=== PATIENT | male | born 2000 | race Caucasian/White ===

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

== ENCOUNTER 2019-01-19 07:27 | Emergency (ER) | payer MEDICAID ==
[~2019-01-19] VITALS: Ht 175.3 cm; Wt 55.0 kg
[~2019-01-19 07:27] MED LIST changes: +ALBUTEROL SUL0.083 % IN
[2019-01-19] MEDS ORDERED: VENTOLIN H108 MCG/AC PO ×2 (07:38→07:45)
[2019-01-19] MEDS ORDERED: ALBUTEROL SUL0.083 % IN (07:41)
[2019-01-19] MEDS ORDERED: IPRATROPIUM BR0.02 % PO (07:41)
[2019-01-19 08:34] LABS: HEMATOCRIT 36.3 % (39.0-50.0); HEMOGLOBIN 11.2 g/dl (14.0-18.0); IMMATURE GRANULOCYTES 0.6 % (0.0-5.0); MEAN CORPUSCULAR HGB 24.7 pG CALC (26.0-32.0); MEAN CORPUSCULAR HGB CONC 30.9 g/L CALC (32.0-36.0); NEUT# 4.15 thou/uL (1.82-7.42); RED BLOOD COUNT 4.54 mill/uL (4.70-6.10); RED CELL DISTRI WIDTH 15.1 % (11.5-15.5)
[2019-01-19 08:37] LABS: ANION GAP 16 (6-22 (CALC)); BUN 13 mg/dL (8-21); BUN/CREATININE RATIO 20 (12-20 (CALC)); CARBON DIOXIDE 25 mmol/l (22-30); CHLORIDE 101 mmol/l (95-108); CREATININE 0.7 mg/dL (0.7-1.3); GFR > 60 ML/MIN (>=60 (CALC)); GFR FOR AFR.AMER. > 60 ML/MIN (>=60 (CALC)); POTASSIUM 4.1 mmol/l (3.5-5.1); SODIUM 138 mmol/l (137-146)
[2019-01-19 09:24] VITALS: BP 101/49
== END 2019-01-19 09:24 | disposition home or self-care (01) ==
LOC: ED 07:27
PROVIDERS: Family Medicine
DX: J45.909 Unspecified asthma, uncomplicated (principal); R06.02 Shortness of breath

== ENCOUNTER 2019-02-24 13:17 | Emergency (ER) | payer MEDICAID ==
[~2019-02-24] VITALS: Ht 175.3 cm; Wt 63.6 kg
[~2019-02-24 13:17] MED LIST changes: +IPRATROPIUM BR0.02 % PO; +LEVOFLOXACIN750 MG PO; +MEDDOSEPAK PO; +VENTOLIN H108 MCG/AC PO
[2019-02-24 13:56] LABS: URINE BILIRUBIN - DIPSTICK NEGATIVE (NEGATIVE); URINE BLOOD DIPSTICK NEGATIVE (NEGATIVE); URINE COLOR YELLOW; URINE GLUCOSE - DIPSTICK NEGATIVE (NEGATIVE); URINE KETONE NEGATIVE (NEGATIVE); URINE LEUK ESTERASE NEGATIVE (NEGATIVE); URINE NITRITE - DIPSTICK NEGATIVE (Negative); URINE PH 6.5 (4.5-8.0); URINE PROTEIN - DIPSTICK NEGATIVE (NEG-TRACE)
[2019-02-24 13:58] LABS: URINE AMORPH SEDIMENT MANY hpf (NONE-FER)
[2019-02-24] MEDS ORDERED: TORADOL PO (14:03)
[2019-02-24] MEDS ORDERED: KEFLEX500 M1 PO (14:03)
[2019-02-24] MEDS ORDERED: PYRIDIUM200 MG PO (14:03)
[2019-02-24 14:10] VITALS: BP 112/57
== END 2019-02-24 14:10 | disposition home or self-care (01) ==
LOC: ED 13:17
PROVIDERS: Emergency Medicine
DX: N34.2 Other urethritis (principal); N45.2 Orchitis

== ENCOUNTER 2019-03-11 00:36 | Emergency (ER) | payer MEDICAID ==
[~2019-03-11] VITALS: Ht 175.3 cm; Wt 54.0 kg
[~2019-03-11 00:36] MED LIST changes: +KEFLEX500 M1 PO; +PYRIDIUM200 MG PO; +TORADOL PO
[2019-03-11] MEDS ORDERED: PROVENTIL0.083 % IN (00:55)
[2019-03-11] MEDS ORDERED: ALBUTEROL108 MCG/AC (00:56)
[2019-03-11 01:55] LABS: HEMATOCRIT 34.7 % (39.0-50.0); IMMATURE GRANULOCYTES 0.4 % (0.0-5.0); MEAN CELL VOLUME 80.1 fL CALC (80.0-100.0); MEAN CORPUSCULAR HGB 25.4 pG CALC (26.0-32.0); MEAN CORPUSCULAR HGB CONC 31.7 g/L CALC (32.0-36.0); NEUT# 6.2 thou/uL (1.82-7.42); RED BLOOD COUNT 4.33 mill/uL (4.70-6.10)
[2019-03-11] MEDS ORDERED: PREDNISONE50 MG PO (03:18)
[2019-03-11] MEDS ORDERED: TESSALON PERLE100 MG PO (03:18)
[2019-03-11 03:25] VITALS: BP 100/48
== END 2019-03-11 03:25 | disposition home or self-care (01) ==
LOC: ED 00:36
PROVIDERS: Family Medicine
DX: J20.8 Acute bronchitis due to other specified organisms (principal); R51 Headache; R05 Cough; R06.02 Shortness of breath; F17.200 Nicotine dependence, unspecified, uncomplicated

== ENCOUNTER 2019-03-18 22:50 | Observation (INO) | payer MEDICAID ==
[~2019-03-18] VITALS: Ht 172.7 cm; Wt 52.0 kg
[~2019-03-18 22:50] MED LIST changes: +ALBUTEROL108 MCG/AC; +PREDNISONE50 MG PO; +PROVENTIL0.083 % IN; +TESSALON PERLE100 MG PO
[2019-03-19 00:11] LABS: HEMATOCRIT 36.4 % (39.0-50.0); HEMOGLOBIN 11.8 g/dl (14.0-18.0); IMMATURE GRANULOCYTES 0.7 % (0.0-5.0); MEAN CELL VOLUME 77.4 fL CALC (80.0-100.0); MEAN CORPUSCULAR HGB 25.1 pG CALC (26.0-32.0); MEAN CORPUSCULAR HGB CONC 32.4 g/L CALC (32.0-36.0); NEUT# 9.68 thou/uL (1.82-7.42); RED BLOOD COUNT 4.7 mill/uL (4.70-6.10); RED CELL DISTRI WIDTH 15.3 % (11.5-15.5)
[2019-03-19 00:33] LABS: ALBUMIN 4.3 g/dL (3.2-5.0); ALKALINE PHOSPHATASE 82 u/l (38-126); ANION GAP 14 (6-22 (CALC)); BILIRUBIN, TOTAL 1.1 mg/dL (0.0-1.4); BUN 9 mg/dL (9-20); BUN/CREATININE RATIO 17 (12-20 (CALC)); CARBON DIOXIDE 29 mmol/l (22-30); CHLORIDE 97 mmol/l (95-108); CREATININE 0.6 mg/dL (0.7-1.3); GFR > 60 ML/MIN (>=60 (CALC)); GFR FOR AFR.AMER. > 60 ML/MIN (>=60 (CALC)); POTASSIUM 3.6 mmol/l (3.5-5.1); SGOT/AST 18 u/l (17-59); SODIUM 137 mmol/l (137-146); TOTAL PROTEIN 7.8 g/dL (6.3-8.2)
[2019-03-19 02:10] VITALS: BP 93/44
[2019-03-19 03:48] VITALS: BP 94/47
[2019-03-19 05:00] LABS: HEMATOCRIT 33.4 % (39.0-50.0); HEMOGLOBIN 10.6 g/dl (14.0-18.0); IMMATURE GRANULOCYTES 0.6 % (0.0-5.0); MEAN CELL VOLUME 78.8 fL CALC (80.0-100.0); MEAN CORPUSCULAR HGB CONC 31.7 g/L CALC (32.0-36.0); NEUT# 6.43 thou/uL (1.82-7.42); RED BLOOD COUNT 4.24 mill/uL (4.70-6.10); RED CELL DISTRI WIDTH 15.5 % (11.5-15.5)
[2019-03-19 05:35] LABS: ANION GAP 13 (6-22 (CALC)); BUN 8 mg/dL (9-20); BUN/CREATININE RATIO 17 (12-20 (CALC)); CARBON DIOXIDE 28 mmol/l (22-30); CHLORIDE 102 mmol/l (95-108); CREATININE 0.5 mg/dL (0.7-1.3); GFR > 60 ML/MIN (>=60 (CALC)); GFR FOR AFR.AMER. > 60 ML/MIN (>=60 (CALC)); POTASSIUM 3.7 mmol/l (3.5-5.1); SODIUM 139 mmol/l (137-146)
[2019-03-19 07:32] VITALS: BP 86/44
[2019-03-19 07:46] VITALS: BP 98/44
[2019-03-19 11:11] VITALS: BP 90/52
[2019-03-19] MEDS ORDERED: LEVAQUIN750 MG PO (14:23)
== END 2019-03-19 15:00 | disposition home or self-care (01) ==
LOC: ED 22:50 → ED-I 03-19 01:10 → ED 03-19 01:33 → MS2 03-19 01:34
PROVIDERS: Emergency Medicine; ADMIT Internal Medicine; ATTEND Internal Medicine
DX: J18.9 Pneumonia, unspecified organism (principal); E84.0 Cystic fibrosis with pulmonary manifestations; Z87.01 Personal history of pneumonia (recurrent); Z86.14 Personal history of Methicillin resistant Staphylococcus aureus infection; Z88.0 Allergy status to penicillin
CPT/HCPCS: G0378

== ENCOUNTER 2019-03-19 21:52 | Emergency (ER) | payer MEDICAID ==
[~2019-03-19] VITALS: Ht 172.7 cm; Wt 54.5 kg
[~2019-03-19 21:52] MED LIST changes: +LEVAQUIN750 MG PO
[2019-03-19 22:49] VITALS: BP 99/54
== END 2019-03-19 22:48 | disposition home or self-care (01) ==
LOC: ED 21:52
DX: J18.9 Pneumonia, unspecified organism (principal); E84.9 Cystic fibrosis, unspecified

== ENCOUNTER 2019-04-15 14:14 | Inpatient (IN) | payer MEDICAID ==
[~2019-04-15] VITALS: Ht 172.7 cm; Wt 54.4 kg
[2019-04-15 14:56] LABS: HEMATOCRIT 39.2 % (39.0-50.0); IMMATURE GRANULOCYTES 0.6 % (0.0-5.0); MEAN CELL VOLUME 78.2 fL CALC (80.0-100.0); MEAN CORPUSCULAR HGB 25.3 pG CALC (26.0-32.0); MEAN CORPUSCULAR HGB CONC 32.4 g/L CALC (32.0-36.0); NEUT# 13.7 thou/uL (1.82-7.42); RED BLOOD COUNT 5.01 mill/uL (4.70-6.10); RED CELL DISTRI WIDTH 15.3 % (11.5-15.5)
[2019-04-15 15:04] LABS: HEMOGLOBIN 12.7 g/dl (14.0-18.0)
[2019-04-15 15:13] LABS: ANION GAP 14 (6-22 (CALC)); BUN 7 mg/dL (9-20); BUN/CREATININE RATIO 15 (12-20 (CALC)); CARBON DIOXIDE 24 mmol/l (22-30); CHLORIDE 103 mmol/l (95-108); CREATININE 0.4 mg/dL (0.7-1.3); GFR > 60 ML/MIN (>=60 (CALC)); GFR FOR AFR.AMER. > 60 ML/MIN (>=60 (CALC)); SODIUM 137 mmol/l (137-146)
[2019-04-15 18:39] LABS: URINE BILIRUBIN - DIPSTICK NEGATIVE (NEGATIVE); URINE BLOOD DIPSTICK NEGATIVE (NEGATIVE); URINE COLOR YELLOW; URINE GLUCOSE - DIPSTICK NEGATIVE (NEGATIVE); URINE KETONE NEGATIVE (NEGATIVE); URINE LEUK ESTERASE NEGATIVE (NEGATIVE); URINE NITRITE - DIPSTICK NEGATIVE (Negative); URINE PROTEIN - DIPSTICK NEGATIVE (NEG-TRACE); URINE SPECIFIC GRAVITY <=1.005; URINE UROBILINOGEN - DIPSTICK 0.2 E.U./dL (0.2)
[2019-04-15 19:36] VITALS: BP 89/40
[2019-04-16 03:17] VITALS: BP 82/36
[2019-04-16 04:28] VITALS: BP 94/51
[2019-04-16 05:11] LABS: HEMATOCRIT 35.7 % (39.0-50.0); HEMOGLOBIN 11.2 g/dl (14.0-18.0); IMMATURE GRANULOCYTES 0.5 % (0.0-5.0); MEAN CELL VOLUME 79.9 fL CALC (80.0-100.0); MEAN CORPUSCULAR HGB 25.1 pG CALC (26.0-32.0); MEAN CORPUSCULAR HGB CONC 31.4 g/L CALC (32.0-36.0); NEUT# 2.86 thou/uL (1.82-7.42); RED BLOOD COUNT 4.47 mill/uL (4.70-6.10); RED CELL DISTRI WIDTH 15.6 % (11.5-15.5)
[2019-04-16 05:36] LABS: ALKALINE PHOSPHATASE 70 u/l (38-126); ANION GAP 10 (6-22 (CALC)); BUN 9 mg/dL (9-20); BUN/CREATININE RATIO 18 (12-20 (CALC)); CARBON DIOXIDE 27 mmol/l (22-30); CHLORIDE 105 mmol/l (95-108); CREATININE 0.5 mg/dL (0.7-1.3); GFR > 60 ML/MIN (>=60 (CALC)); GFR FOR AFR.AMER. > 60 ML/MIN (>=60 (CALC)); POTASSIUM 3.9 mmol/l (3.5-5.1); SGOT/AST 12 u/l (17-59); SODIUM 139 mmol/l (137-146)
[2019-04-16 05:51] LABS: BILIRUBIN, TOTAL 0.4 mg/dL (0.0-1.4); TOTAL PROTEIN 5.7 g/dL (6.3-8.2)
[2019-04-16 09:00] VITALS: BP 91/46
[2019-04-16] MEDS ORDERED: TYLENOL500 MG PO (14:23)
[2019-04-16 15:55] VITALS: BP 103/58
[2019-04-16 18:49] VITALS: BP 90/56
[2019-04-17 00:10] VITALS: BP 91/42
[2019-04-17 04:27] VITALS: BP 97/46
[2019-04-17 05:43] LABS: HEMATOCRIT 37.7 % (39.0-50.0); HEMOGLOBIN 11.9 g/dl (14.0-18.0); MEAN CELL VOLUME 79.7 fL CALC (80.0-100.0); MEAN CORPUSCULAR HGB 25.2 pG CALC (26.0-32.0); MEAN CORPUSCULAR HGB CONC 31.6 g/L CALC (32.0-36.0); RED BLOOD COUNT 4.73 mill/uL (4.70-6.10); RED CELL DISTRI WIDTH 15.5 % (11.5-15.5)
[2019-04-17 06:09] LABS: ANION GAP 14 (6-22 (CALC)); BUN 6 mg/dL (9-20); BUN/CREATININE RATIO 12 (12-20 (CALC)); CARBON DIOXIDE 25 mmol/l (22-30); CHLORIDE 104 mmol/l (95-108); CREATININE 0.5 mg/dL (0.7-1.3); GFR > 60 ML/MIN (>=60 (CALC)); GFR FOR AFR.AMER. > 60 ML/MIN (>=60 (CALC)); POTASSIUM 4.2 mmol/l (3.5-5.1); SODIUM 139 mmol/l (137-146)
[2019-04-17 07:53] VITALS: BP 95/44
[2019-04-17 11:13] VITALS: BP 99/42
[2019-04-17 16:35] VITALS: BP 94/47
[2019-04-17 19:45] VITALS: BP 113/59
[2019-04-18] VITALS (7 sets, daily range): BP systolic 90–119; BP diastolic 40–53
[2019-04-18 05:11] LABS: HEMATOCRIT 35.1 % (39.0-50.0); HEMOGLOBIN 11.3 g/dl (14.0-18.0); IMMATURE GRANULOCYTES 0.5 % (0.0-5.0); MEAN CELL VOLUME 78.9 fL CALC (80.0-100.0); MEAN CORPUSCULAR HGB 25.4 pG CALC (26.0-32.0); MEAN CORPUSCULAR HGB CONC 32.2 g/L CALC (32.0-36.0); NEUT# 2.77 thou/uL (1.82-7.42); RED BLOOD COUNT 4.45 mill/uL (4.70-6.10); RED CELL DISTRI WIDTH 15.4 % (11.5-15.5)
[2019-04-18 05:35] LABS: ALBUMIN 3.5 g/dL (3.2-5.0); ALKALINE PHOSPHATASE 88 u/l (38-126); ANION GAP 16 (6-22 (CALC)); BILIRUBIN, TOTAL 0.3 mg/dL (0.0-1.4); BUN 6 mg/dL (9-20); BUN/CREATININE RATIO 13 (12-20 (CALC)); CARBON DIOXIDE 25 mmol/l (22-30); CHLORIDE 103 mmol/l (95-108); CREATININE 0.5 mg/dL (0.7-1.3); GFR > 60 ML/MIN (>=60 (CALC)); GFR FOR AFR.AMER. > 60 ML/MIN (>=60 (CALC)); POTASSIUM 3.9 mmol/l (3.5-5.1); SGOT/AST 16 u/l (17-59); SODIUM 140 mmol/l (137-146); TOTAL PROTEIN 6.5 g/dL (6.3-8.2)
[2019-04-19 03:51] VITALS: BP 95/54
[2019-04-19 07:05] VITALS: BP 90/40
[2019-04-19 11:08] VITALS: BP 102/46
[2019-04-19 16:40] VITALS: BP 111/49
[2019-04-19 19:07] VITALS: BP 99/49
[2019-04-19 23:48] VITALS: BP 96/47
[2019-04-20 03:11] VITALS: BP 91/47
[2019-04-20 08:40] VITALS: BP 92/41
[2019-04-20] MEDS ORDERED: DOXYCYCL HYC100 MG PO (08:57)
== END 2019-04-20 13:37 | disposition home or self-care (01) | DRG 177 ==
LOC: ED 14:14 → ED-I 16:16 → ED 16:26 → MS2 16:27
PROVIDERS: Family Medicine; Internal Medicine; ADMIT Internal Medicine; ATTEND Internal Medicine
DX: J15.212 Pneumonia due to Methicillin resistant Staphylococcus aureus (principal); E84.0 Cystic fibrosis with pulmonary manifestations; J98.09 Other diseases of bronchus, not elsewhere classified; L29.9 Pruritus, unspecified; T36.8X5A Adverse effect of other systemic antibiotics, initial encounter; Z88.0 Allergy status to penicillin; Z86.14 Personal history of Methicillin resistant Staphylococcus aureus infection; Z87.01 Personal history of pneumonia (recurrent)
CPT/HCPCS: Q9967

== ENCOUNTER 2019-05-07 14:13 | Emergency (ER) | payer MEDICAID ==
[~2019-05-07] VITALS: Ht 172.7 cm; Wt 75.0 kg
[~2019-05-07 14:13] MED LIST changes: +DOXYCYCL HYC100 MG PO; +TYLENOL500 MG PO
[2019-05-07 15:18] LABS: HEMATOCRIT 37.1 % (39.0-50.0); HEMOGLOBIN 12.2 g/dl (14.0-18.0); IMMATURE GRANULOCYTES 0.2 % (0.0-5.0); MEAN CELL VOLUME 78.8 fL CALC (80.0-100.0); MEAN CORPUSCULAR HGB 25.9 pG CALC (26.0-32.0); MEAN CORPUSCULAR HGB CONC 32.9 g/L CALC (32.0-36.0); NEUT# 4.65 thou/uL (1.82-7.42); RED BLOOD COUNT 4.71 mill/uL (4.70-6.10); RED CELL DISTRI WIDTH 16.1 % (11.5-15.5)
[2019-05-07 15:31] LABS: ALKALINE PHOSPHATASE 98 u/l (38-126); ANION GAP 18 (6-22 (CALC)); BUN 9 mg/dL (9-20); BUN/CREATININE RATIO 17 (12-20 (CALC)); CARBON DIOXIDE 24 mmol/l (22-30); CHLORIDE 100 mmol/l (95-108); CREATININE 0.5 mg/dL (0.7-1.3); GFR > 60 ML/MIN (>=60 (CALC)); GFR FOR AFR.AMER. > 60 ML/MIN (>=60 (CALC)); SGOT/AST 19 u/l (17-59); SODIUM 138 mmol/l (137-146)
[2019-05-07 15:33] LABS: ALBUMIN 4.7 g/dL (3.2-5.0); BILIRUBIN, TOTAL 0.8 mg/dL (0.0-1.4)
[2019-05-07] MEDS ORDERED: LEVAQUIN500 MG PO (15:54)
[2019-05-07 16:00] VITALS: BP 109/75
== END 2019-05-07 16:08 | disposition home or self-care (01) ==
LOC: ED 14:13
DX: J45.909 Unspecified asthma, uncomplicated (principal); E84.0 Cystic fibrosis with pulmonary manifestations; Z87.01 Personal history of pneumonia (recurrent); Z86.14 Personal history of Methicillin resistant Staphylococcus aureus infection

== ENCOUNTER 2019-06-01 17:14 | Inpatient (IN) | payer MEDICAID ==
[~2019-06-01] VITALS: Ht 172.7 cm; Wt 55.4 kg
[~2019-06-01 17:14] MED LIST changes: +LEVAQUIN500 MG PO
--- NOTE | 2019-06-01 17:31 | NUR ---
PT PLACED IN ROOM 2 TO LY DOWN UNTIL MONITRO ROOM AVAILABLE
--- NOTE | 2019-06-01 17:33 | NUR ---
PT PLACED BACK IN WIATING ROOM UNTIL ROOM AVAILABLE, INFORMED TO NOTIFY STAFF IF ANY CHANGES IN CONDITION, PT AND VISITOR VERBALIZE UNDERSTANDING PROVIDED WITH PILLOW AND BLANKET FOR COMFORT PER PT REQUEST.
--- NOTE | 2019-06-01 18:47 | NUR ---
PT TO ROOM # 14
--- NOTE | 2019-06-01 20:00 | NUR ---
RESTING COMFORTABLY AWAITING TESTS
--- NOTE | 2019-06-01 20:20 | NUR ---
STARTED GASTROGRAFIN RX
[2019-06-01 20:26] LABS: HEMATOCRIT 38.5 % (39.0-50.0); HEMOGLOBIN 12.6 g/dl (14.0-18.0); IMMATURE GRANULOCYTES 0.5 % (0.0-5.0); MEAN CELL VOLUME 78.7 fL CALC (80.0-100.0); MEAN CORPUSCULAR HGB 25.8 pG CALC (26.0-32.0); MEAN CORPUSCULAR HGB CONC 32.7 g/L CALC (32.0-36.0); NEUT# 14.46 thou/uL (1.82-7.42); RED BLOOD COUNT 4.89 mill/uL (4.70-6.10); RED CELL DISTRI WIDTH 14.4 % (11.5-15.5)
[2019-06-01 20:28] LABS: URINE BILIRUBIN - DIPSTICK NEGATIVE (NEGATIVE); URINE BLOOD DIPSTICK NEGATIVE (NEGATIVE); URINE COLOR YELLOW; URINE GLUCOSE - DIPSTICK NEGATIVE (NEGATIVE); URINE KETONE 15 mg/dL (NEGATIVE); URINE LEUK ESTERASE NEGATIVE (NEGATIVE); URINE NITRITE - DIPSTICK NEGATIVE (Negative); URINE PH 8.5 (4.5-8.0); URINE PROTEIN - DIPSTICK TRACE mg/dL (NEG-TRACE); URINE SPECIFIC GRAVITY 1.025
[2019-06-01 20:43] LABS: ALBUMIN 4.2 g/dL (3.2-5.0); ALKALINE PHOSPHATASE 113 u/l (38-126); AMYLASE 115 u/l (30-110); ANION GAP 16 (6-22 (CALC)); BILIRUBIN, TOTAL 0.8 mg/dL (0.0-1.4); BUN 8 mg/dL (9-20); BUN/CREATININE RATIO 14 (12-20 (CALC)); CARBON DIOXIDE 26 mmol/l (22-30); CHLORIDE 101 mmol/l (95-108); CREATININE 0.5 mg/dL (0.7-1.3); GFR > 60 ML/MIN (>=60 (CALC)); GFR FOR AFR.AMER. > 60 ML/MIN (>=60 (CALC)); LIPASE 1273 u/l (23-300); POTASSIUM 3.9 mmol/l (3.5-5.1); SGOT/AST 18 u/l (17-59); SODIUM 139 mmol/l (137-146); TOTAL PROTEIN 7.5 g/dL (6.3-8.2)
--- NOTE | 2019-06-01 21:30 | NUR ---
CONTRAST COMPLETED. AWAITING CT.
--- NOTE | 2019-06-01 22:40 | NUR ---
RETURNED FROM CT. NO CHANGE NOTED.
--- NOTE | 2019-06-01 23:30 | NUR ---
RESTING QUIETLY TALKING ON PHONE.
--- NOTE | 2019-06-02 00:30 | NUR ---
REQUESTS SOMETHING FOR ABD PAIN. ADVISED.
--- NOTE | 2019-06-02 01:31 | NUR ---
Admission Note Report Given to: FRANCISCO BIGGS Transported by: X Wheelchair Stretcher Transported with: X Nurse Transporter X Patent IV O2 Breakfast Attendant
[2019-06-02 01:45] VITALS: BP 120/48
--- NOTE | 2019-06-02 02:30 | NUR ---
PATIENT ADMITTED FROM ER VIA WHEELCHAIR WITH ER STAFF IN ATTENDANCE. PATIENT IS AWAKE ALERT AND ORIENTEDX3. PATIENT MIN ASSIST TO STANDING SCALE AND THEN TO BED. STEADY ON HIS FEET. PATIENT IS NPO AND BEING ADMITTED FOR PANCREATITIS. PATIENT WITH HX OF CYSTIC FIBROSIS. IV SITE TO LEFT AC INTACT WITH IVF NS PATENT AND INFUSING AT 150CC/HR AT THIS TIME. SITE IS HEALTHY AT THIS TIME. ABD IS FLAT AND SOFT-C/O TENDERNESS CHLOE TO RIGHT SIDE. PATIENT WAS MEDICATED FOR PAIN IN THE ER WITH SOME RELIEF. HYPOACTIVE BS NOTED. PATIENT ORIENTED TO ROOM AND SURROUNDINGS. SAFETY PRECAUTIONS REVIEWED WITH PATIENT. INSTRUCTED ON USE OF NURSE CALL LIGHT SYSTEM, TV REMOTE AND PHONE. CALL LIGHT IN REACH. WILL CONT TO MONITOR.
[2019-06-02 04:25] VITALS: BP 104/61
--- NOTE | 2019-06-02 05:46 | NUR ---
PATIENT IS RESTING IN BED AT THIS TIME WITH EYES CLOSED. APPEARS SLEEPING. RESP ARE EVEN AND UNLABORED. IVF D5NS HUNG AND INFUSING AT 125CC/HR VIA LEFT AC SITE. SITE REMAINS HEALTHY AT THIS TIME. PATIENT REMAINS NPO. ONTACT PRECAUTIONS IN PLACE. CALL LIGHT IN REACH. WILL CONT TO MONITOR.
--- NOTE | 2019-06-02 06:50 | NUR ---
PT REPORT RECIEVED FROM FRANCISCO BIGGS. PT RESTING. NO S/S OF DISTRESS. CALL LIGHT IN REACH. WILL CONTINUE TO MONITOR.
--- NOTE | 2019-06-02 07:00 | NUR ---
PT REPORT RECIEVED FROM FRANCISCO LERNER. PT SLEEPING. NO S/S OF DISTRESS. CALL LIGHT IN REACH. WILL CONTINUE TO MONITOR.
[2019-06-02 07:49] VITALS: BP 116/69
--- NOTE | 2019-06-02 07:49 | NUR ---
PT A/O X3. RESP EVEN AND UNLABORED. LUNGS CLEAR. BOWEL SOUNDS ACTIVE X4. PT C/O SHARP ABDOMINAL PAIN 10 OUT OF 10; DISCUSSED W/ PT I WILL GET ORDER FOR PAIN MEDICATION. PT STATES UNDERSTANDING; REPOSITIONED FOR COMFORT AT THIS TIME. STRONG RADIAL AND PEDAL PULSES. #20 LAC NS @150 STARTED. SITE APPEARS HEALTHY. SKIN INTACT. PT DENIES ANY FURTHER NEEDS. POC DISCUSSED. SAFETY PRECAUTIONS IN PLACE. CONTACT PRECUATIONS. CALL LIGHT IN REACH. WILL CONTINUE TO MONITOR.
--- NOTE | 2019-06-02 11:53 | NUR ---
PT SLEEPING. NO C/O PAIN OR NEEDS. CALL LIGHT IN REACH. WILL CONTINUE TO MONITOR.
[2019-06-02 15:41] VITALS: BP 104/48
--- NOTE | 2019-06-02 15:57 | NUR ---
PT ON PHONE WATCHING TELEVISION. NO C/O PAIN OR NEEDS. CALL LIGHT IN REACH. WILL CONTINUE TO MONITOR.
[2019-06-02 19:13] VITALS: BP 116/55
--- NOTE | 2019-06-02 19:49 | NUR ---
PATIENT RESTING IN BED AT THIS TIME-AWAKE ALERT AND ORIENTEDX3. PATIENT WITH C/O RIGHT SIDED ABD PAIN-10/10 ON PAIN SCALE. PATIENT MEDICATED WITH DILAUDID 0.5 IVP ORDERED FOR PAIN. IV SITE TO LEFT AC INTACT AND REMAINS HEALTHY AT THIS ITME. IVF NS PATENT AND INFUSING AT 125CC/HR. ABD IS FIRM WITH ACTIVE BS. LUNGS ARE CLEAR WITH LOOSE NON-PRODUCTIVE COUGH. TAKING PO FLUIDS AND ASKING FOR FOOD. EXPLAINED TO PATIENT THAT HE WAS ONLY ON CLEAR LIQUIDS AT THIS TIME-THIS IS PART OF THE TREATMENT FOR PANCREATITIS. SAFETY PRECAUTIONS REINFORCED. CALL LIGHT IN REACH. WILL CONT TO MONITOR.
--- NOTE | 2019-06-02 21:37 | NUR ---
PATIENT RESTING IN BED-SLIGHT LEAKING NOTED AROUND IV SITE TO LAC-DRESSING WAS CHANGED, IVF PATENT AND INFUSING AT 150CC/HR ORDERED. VOIDING QS CLEAR YELLOW URINE IN URINAL. ASKING FOR JELLO AND IT WAS PROVIDED. CALL LIGHT IN REACH. WILL CONT TO MONITOR.
--- NOTE | 2019-06-03 01:55 | NUR ---
PATIENT RESTING IN BED AT THIS TIME-WATCHING TV-NO COMPLAINTS AT THIS TIME. IVF PATENT AND INFUSING LEFT AC SITE AT 150CC/HR. CONT TO VOID QS CLEAR YELLOW URINE IN URINAL. LOOSE NON-PRODUCTIVE COUGH. CALL LIGHT IN REACH, WILL CONT TO MONITOR.
[2019-06-03 03:51] VITALS: BP 102/54
--- NOTE | 2019-06-03 04:25 | NUR ---
PATIENT RESTING IN BED AT THIS TIME. NEW BAG OF NS HUNG AND INFUSING VIA LAC SITE AT 150CC/HR. NO NEW NEEEDS AT THIS TIME. STATES THAT HE HAS APPT WITH NEW PULMONARY DOCTOR FRIDAY IN [place] AT 10AM. WILL PASS ON IN REPOER. CALL LIGHT IN REACH. WILL CONT TOO MONITOR.
[2019-06-03 07:57] LABS: HEMATOCRIT 37.5 % (39.0-50.0); HEMOGLOBIN 12.1 g/dl (14.0-18.0); MEAN CELL VOLUME 79.6 fL CALC (80.0-100.0); MEAN CORPUSCULAR HGB 25.7 pG CALC (26.0-32.0); MEAN CORPUSCULAR HGB CONC 32.3 g/L CALC (32.0-36.0); RED BLOOD COUNT 4.71 mill/uL (4.70-6.10); RED CELL DISTRI WIDTH 14.4 % (11.5-15.5)
[2019-06-03 08:02] VITALS: BP 107/55
--- NOTE | 2019-06-03 08:03 | NUR ---
REPORT RECEIVED FROM FRANCISCO BIGGS. PT SUPINE IN BED. REPORTS RELIEF OF PAIN FROM RECENT ADMINISTRATION OF DILAUDID. REPORTING OF CONCERNS ENCOROURAGED. PLAN OF CARE DISCUSSED. CALL LIGHT REVIEWED AND IN REACH. PT STATES UNDERSTANDING.
[2019-06-03 08:14] LABS: ALKALINE PHOSPHATASE 88 u/l (38-126); ANION GAP 14 (6-22 (CALC)); BUN 3 mg/dL (9-20); BUN/CREATININE RATIO 7 (12-20 (CALC)); CARBON DIOXIDE 25 mmol/l (22-30); CHLORIDE 101 mmol/l (95-108); CREATININE 0.5 mg/dL (0.7-1.3); GFR > 60 ML/MIN (>=60 (CALC)); GFR FOR AFR.AMER. > 60 ML/MIN (>=60 (CALC)); LIPASE 870 u/l (23-300); POTASSIUM 3.7 mmol/l (3.5-5.1); SGOT/AST 16 u/l (17-59); SODIUM 136 mmol/l (137-146); TOTAL PROTEIN 6.2 g/dL (6.3-8.2)
[2019-06-03 08:19] LABS: BILIRUBIN, TOTAL 1.2 mg/dL (0.0-1.4)
[2019-06-03 08:20] LABS: ALBUMIN 3.3 g/dL (3.2-5.0)
--- NOTE | 2019-06-03 10:12 | NUR ---
ALISON MACDONALD IN TO SEE PT. PLAN OF CARE UPDATED. INCREASED ACTIVITY ENCOURAGED. DIET ADVANCED TO FULL LIQUID. PT'S MOTHER ON PHONE IN PT'S ROOM, UPDATED BY VIDEO PHOTOGRAPHER AT THIS TIME.
--- NOTE | 2019-06-03 12:29 | NUR ---
DR. SAMAYOA IN TO SEE PT. DIET ADVANCEMENT AND POSSIBLE DISCHARGE HOME THIS EVENING DISCUSSED AND AGREED UPON BY PT, PT'S MOTHER AND
[2019-06-03 15:00] VITALS: BP 102/50
--- NOTE | 2019-06-03 16:57 | NUR ---
MOTHER AT BEDSIDE. REQUESTING RECORDS TO TAKE TO CF SPECIALIST. DR. SAMAYOA APPROVED THIS.
[2019-06-03] MEDS ORDERED: LORTAB 5/3255 MG PO (17:04)
--- NOTE | 2019-06-03 17:40 | NUR ---
Discharge instructions given. Patient verbalizes understanding of same. Discharged in stable condition via Wheelchair to Home with parents. All belongings sent with pt.
== END 2019-06-03 17:40 | disposition home or self-care (01) | DRG 438 ==
LOC: ED 17:14 → ED-I 06-02 00:15 → ED 06-02 00:34 → MS2 06-02 00:35
PROVIDERS: Family Medicine; ADMIT Internal Medicine; ATTEND Internal Medicine
DX: K85.90 Acute pancreatitis without necrosis or infection, unspecified (principal); E84.0 Cystic fibrosis with pulmonary manifestations; Z87.01 Personal history of pneumonia (recurrent)
CPT/HCPCS: Q9967; S0164

== ENCOUNTER 2020-05-28 14:02 | Emergency (ER) | payer SELFPAY ==
[~2020-05-28] VITALS: Ht 172.7 cm; Wt 59.0 kg
[~2020-05-28 14:02] MED LIST changes: +LORTAB 5/3255 MG PO
[2020-05-28 14:56] LABS: HEMATOCRIT 38.5 % (39.0-50.0); HEMOGLOBIN 12.8 g/dl (14.0-18.0); IMMATURE GRANULOCYTES 0.3 % (0.0-5.0); MEAN CELL VOLUME 82.4 fL CALC (80.0-100.0); MEAN CORPUSCULAR HGB 27.4 pG CALC (26.0-32.0); MEAN CORPUSCULAR HGB CONC 33.2 g/dL CAL (32.0-36.0); NEUT# 8.95 thou/uL (1.82-7.42); RED BLOOD COUNT 4.67 mill/uL (4.70-6.10); RED CELL DISTRI WIDTH 12.3 % (11.5-15.5)
[2020-05-28 15:18] LABS: ALBUMIN 3.8 g/dL (3.2-5.0); ALKALINE PHOSPHATASE 87 u/l (38-126); ANION GAP 13 (6-22 (CALC)); BILIRUBIN, TOTAL 0.9 mg/dL (0.0-1.4); BUN 7 mg/dL (9-20); BUN/CREATININE RATIO 13 (12-20 (CALC)); CARBON DIOXIDE 25 mmol/l (22-30); CHLORIDE 100 mmol/l (95-108); CREATININE 0.5 mg/dL (0.7-1.3); GFR > 60 ML/MIN (>=60 (CALC)); GFR FOR AFR.AMER. > 60 ML/MIN (>=60 (CALC)); POTASSIUM 3.9 mmol/l (3.5-5.1); SGOT/AST 20 u/l (17-59); SODIUM 135 mmol/l (137-146); TOTAL PROTEIN 7.1 g/dL (6.3-8.2)
[2020-05-28] MEDS ORDERED: LEVAQUIN750 M1 PO (16:31)
[2020-05-28 17:00] VITALS: BP 107/55
== END 2020-05-28 17:00 | disposition home or self-care (01) | DRG 194 ==
LOC: ED 14:02
PROVIDERS: Family Medicine
DX: J18.9 Pneumonia, unspecified organism (principal); E84.9 Cystic fibrosis, unspecified; J45.909 Unspecified asthma, uncomplicated; Z86.14 Personal history of Methicillin resistant Staphylococcus aureus infection; Z20.828 Contact with and (suspected) exposure to other viral communicable diseases

== ENCOUNTER 2020-06-04 00:58 | Emergency (ER) | payer SELFPAY ==
[~2020-06-04] VITALS: Ht 172.7 cm; Wt 59.0 kg
[~2020-06-04 00:58] MED LIST changes: +LEVAQUIN750 M1 PO
[2020-06-04 01:56] LABS: HEMATOCRIT 41.3 % (39.0-50.0); HEMOGLOBIN 13.1 g/dl (14.0-18.0); IMMATURE GRANULOCYTES 0.5 % (0.0-5.0); MEAN CELL VOLUME 83.9 fL CALC (80.0-100.0); MEAN CORPUSCULAR HGB 26.6 pG CALC (26.0-32.0); MEAN CORPUSCULAR HGB CONC 31.7 g/dL CAL (32.0-36.0); NEUT# 10.06 thou/uL (1.82-7.42); RED BLOOD COUNT 4.92 mill/uL (4.70-6.10); RED CELL DISTRI WIDTH 12.5 % (11.5-15.5)
[2020-06-04 02:10] LABS: ALBUMIN 4.3 g/dL (3.2-5.0); ALKALINE PHOSPHATASE 86 u/l (38-126); AMYLASE 83 u/l (30-110); ANION GAP 19 (6-22 (CALC)); BILIRUBIN, TOTAL 0.3 mg/dL (0.0-1.4); BUN 8 mg/dL (9-20); BUN/CREATININE RATIO 12 (12-20 (CALC)); CARBON DIOXIDE 25 mmol/l (22-30); CHLORIDE 102 mmol/l (95-108); CREATININE 0.7 mg/dL (0.7-1.3); ETHYL ALCOHOL 200 mg/dl (0-30); GFR > 60 ML/MIN (>=60 (CALC)); GFR FOR AFR.AMER. > 60 ML/MIN (>=60 (CALC)); LIPASE 178 u/l (23-300); MAGNESIUM 2.2 mg/dL (1.6-2.3); POTASSIUM 4.1 mmol/l (3.5-5.1); SGOT/AST 34 u/l (17-59); SODIUM 141 mmol/l (137-146); TOTAL PROTEIN 8.1 g/dL (6.3-8.2)
[2020-06-04 02:49] LABS: URINE BILIRUBIN - DIPSTICK NEGATIVE (NEGATIVE); URINE BLOOD DIPSTICK NEGATIVE (NEGATIVE); URINE COLOR YELLOW; URINE GLUCOSE - DIPSTICK 100 mg/dL (NEGATIVE); URINE KETONE NEGATIVE (NEGATIVE); URINE LEUK ESTERASE NEGATIVE (NEGATIVE); URINE NITRITE - DIPSTICK NEGATIVE (Negative); URINE PROTEIN - DIPSTICK NEGATIVE (NEG-TRACE); URINE SPECIFIC GRAVITY 1.025; URINE UROBILINOGEN - DIPSTICK 0.2 E.U./dL (0.2)
[2020-06-04 03:03] VITALS: BP 97/51
== END 2020-06-04 03:20 | disposition home or self-care (01) | DRG 897 ==
LOC: ED 00:58
PROVIDERS: Family Medicine
DX: F10.129 Alcohol abuse with intoxication, unspecified (principal); E84.9 Cystic fibrosis, unspecified; J45.909 Unspecified asthma, uncomplicated

== ENCOUNTER 2020-10-07 22:37 | Emergency (ER) | payer SELFPAY ==
[~2020-10-07] VITALS: Ht 152.4 cm; Wt 59.0 kg
[2020-10-07 23:19] LABS: HEMATOCRIT 37.7 % (39.0-50.0); IMMATURE GRANULOCYTES 0.3 % (0.0-5.0); MEAN CELL VOLUME 82.7 fL CALC (80.0-100.0); MEAN CORPUSCULAR HGB 26.3 pG CALC (26.0-32.0); MEAN CORPUSCULAR HGB CONC 31.8 g/dL CAL (32.0-36.0); NEUT# 6.57 thou/uL (1.82-7.42); RED BLOOD COUNT 4.56 mill/uL (4.70-6.10); RED CELL DISTRI WIDTH 13.3 % (11.5-15.5)
[2020-10-07 23:22] LABS: URINE BILIRUBIN - DIPSTICK NEGATIVE (NEGATIVE); URINE BLOOD DIPSTICK NEGATIVE (NEGATIVE); URINE COLOR YELLOW; URINE GLUCOSE - DIPSTICK NEGATIVE (NEGATIVE); URINE KETONE NEGATIVE (NEGATIVE); URINE LEUK ESTERASE NEGATIVE (NEGATIVE); URINE NITRITE - DIPSTICK NEGATIVE (Negative); URINE PH 6.5 (4.5-8.0); URINE PROTEIN - DIPSTICK NEGATIVE (NEG-TRACE); URINE SPECIFIC GRAVITY 1.025
[2020-10-07 23:32] LABS: ALBUMIN 3.9 g/dL (3.2-5.0); ALKALINE PHOSPHATASE 81 u/l (38-126); AMYLASE 58 u/l (30-110); ANION GAP 12 (6-22 (CALC)); BUN 5 mg/dL (9-20); BUN/CREATININE RATIO 10 (12-20 (CALC)); CARBON DIOXIDE 27 mmol/l (22-30); CHLORIDE 100 mmol/l (95-108); CREATININE 0.5 mg/dL (0.7-1.3); GFR > 60 ML/MIN (>=60 (CALC)); GFR FOR AFR.AMER. > 60 ML/MIN (>=60 (CALC)); LIPASE 145 u/l (23-300); MAGNESIUM 2.1 mg/dL (1.6-2.3); POTASSIUM 3.7 mmol/l (3.5-5.1); SGOT/AST 33 u/l (17-59); SODIUM 135 mmol/l (137-146); TOTAL PROTEIN 7.9 g/dL (6.3-8.2)
[2020-10-07 23:33] LABS: BILIRUBIN, TOTAL 0.8 mg/dL (0.0-1.4)
[2020-10-08] MEDS ORDERED: PHENERGAN25 MG/TAB PO (01:07)
[2020-10-08] MEDS ORDERED: LEVAQUIN750 M1 PO (01:07)
[2020-10-08 01:45] VITALS: BP 108/70
[2020-10-09] MEDS ORDERED: PROTONIX40 M2 PO (12:50)
[2020-10-09] MEDS ORDERED: DOK100 MG PO (12:51)
[2020-10-09] MEDS ORDERED: CALCIUM + D PO (12:52)
[2020-10-09] MEDS ORDERED: DEKAS ESSENTIAL PO (12:54)
[2020-10-09] MEDS ORDERED: ZITHROMAX250 MG PO (12:59)
[2020-10-09] MEDS ORDERED: GERI-KOT8.6 MG PO (13:00)
[2020-10-09] MEDS ORDERED: DRONABINOL5 MG PO (13:01)
== END 2020-10-08 01:45 | disposition home or self-care (01) | DRG 641 ==
LOC: ED 22:37
PROVIDERS: Family Medicine
DX: E84.9 Cystic fibrosis, unspecified (principal); R11.10 Vomiting, unspecified; J45.909 Unspecified asthma, uncomplicated; Z20.822 Contact with and (suspected) exposure to COVID-19
CPT/HCPCS: Q9967

== ENCOUNTER 2020-10-08 19:14 | Observation (INO) | payer SELFPAY ==
[~2020-10-08] VITALS: Ht 175.3 cm; Wt 56.8 kg
[~2020-10-08 19:14] MED LIST changes: +PHENERGAN25 MG/TAB PO
--- NOTE | 2020-10-08 19:16 | NUR ---
PT TO ROOM 6 FOR TRIAGE
--- NOTE | 2020-10-08 19:40 | NUR ---
PT UNABLE TO RECALL NAMES OF MEDICATIONS HE TAKES FOR HIS CF.
[2020-10-08 19:55] LABS: HEMATOCRIT 36.5 % (39.0-50.0); HEMOGLOBIN 11.6 g/dl (14.0-18.0); IMMATURE GRANULOCYTES 0.5 % (0.0-5.0); MEAN CELL VOLUME 83.5 fL CALC (80.0-100.0); MEAN CORPUSCULAR HGB 26.5 pG CALC (26.0-32.0); MEAN CORPUSCULAR HGB CONC 31.8 g/dL CAL (32.0-36.0); NEUT# 7.41 thou/uL (1.82-7.42); RED BLOOD COUNT 4.37 mill/uL (4.70-6.10); RED CELL DISTRI WIDTH 13.2 % (11.5-15.5)
--- NOTE | 2020-10-08 19:55 | NUR ---
IV INTIATED WITH BLOOD CULTURES OBTAINED. PT TOLERATED WELL. ADVISED OF WAIT TIME FOR RESULTS. VERBALIZED UNDERSTANDING. DENIES ANY NEEDS. CALL LIGHT WITHIN REACH.
[2020-10-08 20:08] LABS: ALBUMIN 3.3 g/dL (3.2-5.0); ALKALINE PHOSPHATASE 80 u/l (38-126); ANION GAP 12 (6-22 (CALC)); BILIRUBIN, TOTAL 0.5 mg/dL (0.0-1.4); BUN 6 mg/dL (9-20); BUN/CREATININE RATIO 11 (12-20 (CALC)); CARBON DIOXIDE 25 mmol/l (22-30); CHLORIDE 103 mmol/l (95-108); CREATININE 0.5 mg/dL (0.7-1.3); GFR > 60 ML/MIN (>=60 (CALC)); GFR FOR AFR.AMER. > 60 ML/MIN (>=60 (CALC)); SGOT/AST 16 u/l (17-59); SODIUM 136 mmol/l (137-146); TOTAL PROTEIN 6.8 g/dL (6.3-8.2)
--- NOTE | 2020-10-08 20:20 | NUR ---
PT MEDICATED PER ORDER. TOLERATED ADMINISTRATION WELL. PT REQUESTING BLANKET AND LIGHTS DIMMED. CALL LIGHT PROVIDED. DENIES FURTHER NEEDS.
--- NOTE | 2020-10-08 20:33 | NUR ---
PT MEDICATED PER [facility] ORDER. TOLERATED WELL. VERBALIZES NO NEEDS AT THIS TIME. CALL LIGHT WITHIN REACH. VISITOR BEDSIDE.
--- NOTE | 2020-10-08 20:33 | NUR ---
BREATHING TREATMENT BACK TO BACK GIVEN ORDERED
--- NOTE | 2020-10-08 21:30 | NUR ---
PT RESTING ON STRETCHER IN NO APPARENT DISTRESS. RESP EVEN AND UNLABORED.S KINW WARM AND DRY. VERBALIZES NO NEEDS AT THIS TIME. CALL LIGHT WITHIN REACH
--- NOTE | 2020-10-08 21:45 | NUR ---
Admission Note Report Given to: RALPH SINGH Transported by: X Wheelchair Stretcher Transported with: X Nurse Transporter X Patent IV O2 Dielectric Embossing Machine Operator Location: ICU X MS2 PT REPORT PROVIDED TO RALPH SINGH. PT TRANSPORTED TO ROOM # 262 VIA WC IN STABLE CONDITION.
--- NOTE | 2020-10-09 01:21 | NUR ---
LATE ENTRY 2330 PATIENT RECEIVED TO ROOM 262 VIA WHEELCHAIR. ALERT AND ORIENTED X3. TRANSFERRED TO BED WITHOUT DIFFICULTY. ORIENTED TO ROOM, INSTRUCTED ON USE OF CALL LIGHT/REMOTE.
[2020-10-09 03:18] VITALS: BP 94/53
--- NOTE | 2020-10-09 07:21 | NUR ---
LATE ENTRY 0305 RESTING QUIETLY IN BED. NO DISTRESS NOTED AT THIS TIME.
--- NOTE | 2020-10-09 07:44 | NUR ---
PATIENT DOES NOT RECALL MEDS TAKEN AT HOME, PHARMACY CONSULTED.
[2020-10-09 08:00] VITALS: BP 120/68
--- NOTE | 2020-10-09 08:00 | NUR ---
PATIENT RESTING IN THE BED AXOX3. O2 RA. NO RESP DISTRESS NOTED AT THIS TIME. IV INFUSING. PATIENT DENIES PAIN. REPOSITIOEND FOR COPMFORT, SIDE RAILS UP CALL LIGHT IN REACH BED LOCKED IN LOW POSITION, ALL SAFTY MEASURES IN PALCE . WILL CONTINUE TO MONIOTR THE PATIENT.
--- NOTE | 2020-10-09 10:16 | NUR ---
EDUCATED ON SPUTUM SAMPLE.
--- NOTE | 2020-10-09 10:24 | NUR ---
PT HAS PMH OF CYSTIC FIBROSIS, SAYS HE FILLS AT [facility]. [facility] HAS NO RECENT MEDS. PT MOTHER THOUGHT [facility], THEY ALSO HAVE NOT FILLED RECENTLY. MOTHER STATES SHE DOESNT THINK PT HAS SEEN SPECIALIST IN OVER A YEAR
[2020-10-09] MEDS ORDERED: PROTONIX40 M2 PO (12:50)
[2020-10-09] MEDS ORDERED: DOK100 MG PO (12:51)
[2020-10-09] MEDS ORDERED: CALCIUM + D PO (12:52)
[2020-10-09] MEDS ORDERED: DEKAS ESSENTIAL PO (12:54)
[2020-10-09] MEDS ORDERED: ZITHROMAX250 MG PO (12:59)
[2020-10-09] MEDS ORDERED: GERI-KOT8.6 MG PO (13:00)
[2020-10-09] MEDS ORDERED: DRONABINOL5 MG PO (13:01)
--- NOTE | 2020-10-09 14:12 | NUR ---
CHRISS DONE RESULTS GIVEN TO THE PROVIDER.
[2020-10-09 15:02] VITALS: BP 106/51
--- NOTE | 2020-10-09 16:10 | NUR ---
PATIENT BACK INTO BED. NO RESP DISTRESS NOTED AT THIS TIME. EDUCATED ON DISCHARGE, INSTRUCTED PT NOT D/C TODAY. REPOSITIOEND FOR COMFORT, SIDE RAILS UP CALL LIGHT IN REACH BED LOCKED IN LOW POSITION, ALL SAFTY MEASURES IN PLACE. WILL CONTINUE TO MONIOTR THE PATIENT.
[2020-10-09 19:00] VITALS: BP 101/52
[2020-10-10 04:00] VITALS: BP 94/57
--- NOTE | 2020-10-10 05:07 | NUR ---
PATIENT IS ALERT AND ORIENTED X4. ABLE TO MAKE NEEDS KNOWN. RESPRIATION EASY ON ROOM. COUGH OBSERVED, HOWEVER NONPRODUCTIVE. TELEMED DR. GAO SPOKE WITH PATIENT ARE 2030 ABOUT PLAN OF CARE AND PATIENT CONDITION. PATIENT DENIES PAIN UNLESS COUGHING. WHEN COUGHING, LOWER ABDOMEN PAIN NOTED 01/18. CONTINUES ON IVF NS AT 125 ML/HR. CONTINUES ON IVABT WELL. SKIN WARM AND DRY. BED IN LOW POSITION. CALL LIGHT WITHIN REACH.
[2020-10-10 06:24] LABS: HEMATOCRIT 36.4 % (39.0-50.0); HEMOGLOBIN 11.3 g/dl (14.0-18.0); MEAN CELL VOLUME 84.8 fL CALC (80.0-100.0); MEAN CORPUSCULAR HGB 26.3 pG CALC (26.0-32.0); RED BLOOD COUNT 4.29 mill/uL (4.70-6.10); RED CELL DISTRI WIDTH 13.6 % (11.5-15.5)
[2020-10-10 06:42] LABS: BUN 6 mg/dL (9-20); BUN/CREATININE RATIO 11 (12-20 (CALC)); CARBON DIOXIDE 26 mmol/l (22-30); CHLORIDE 103 mmol/l (95-108); CREATININE 0.6 mg/dL (0.7-1.3); GFR > 60 ML/MIN (>=60 (CALC)); GFR FOR AFR.AMER. > 60 ML/MIN (>=60 (CALC)); MAGNESIUM 2.1 mg/dL (1.6-2.3); POTASSIUM 3.5 mmol/l (3.5-5.1)
[2020-10-10 06:44] LABS: ANION GAP 13 (6-22 (CALC)); SODIUM 138 mmol/l (137-146)
[2020-10-10 08:00] VITALS: BP 108/64
--- NOTE | 2020-10-10 08:00 | NUR ---
PT RESTING IN THE BED AXOX3, NO RESP DISTRESS NOTED. HE DENIES PAIN . IV INFUSING. PT STATES " WHEN WILL I BE DISCHARGED TODAY " EDUCATED ON DISCHARGE PROCESS AND PT NOT HAVING A DISCHARGE ORDER AT THIS TIME. REPOSITIOEND FOR COMFORT, SIDE RAILS UP CALL LIGHT IN REACH. BED LOCKED IN LOW POSITION, WILL CONTINUE TO MONITOR THE PATIENT.
[2020-10-10 08:16] LABS: AMYLASE 53 u/l (30-110); LIPASE 420 u/l (23-300)
--- NOTE | 2020-10-10 12:10 | NUR ---
INSTRUCTED THE PATIENT NO DICHARGE ORDER AT THIS TIME.
[2020-10-10 15:05] VITALS: BP 102/49
--- NOTE | 2020-10-10 15:57 | NUR ---
RESTING COMFORTABLE IN THE CHAIR NO RESP DISTRESS NOTED AT THIS TIME. CALL LIGHT IN REACH. WILL CONTINUE TO MONITOR THE PATIENT.
[2020-10-10 18:56] VITALS: BP 106/57
--- NOTE | 2020-10-10 19:00 | NUR ---
REPORT RECEIVED FROM Silver GARSAI RN, CARE OF PT ASSUMED AT THIS TIME.
--- NOTE | 2020-10-10 19:45 | NUR ---
PT LAYING IN BED WATCHING TV. PT PROVIDED WITH BAG DELIVERED FOR PT AND BROUGHT TO UNIT BY SHUTTLE HAND SCREENER. BAG CONTAINS FOOD. PHYSICAL ASSESMENT COMPLETE. LUNGS CLEAR, RESPIRATIONS REGULAR AND UNLABORED THOUGH PT REPORTS SOB W/ EXERTION. MOIST COUGH APPRECIATED, PT REPORTS NON-PRODUCTIVE. OFFERED PT TO OBTAIN ORDER FOR ACAPELLA/FLUTTER VALVE DEVICE. PT STATES "I HAVE ONE AT HOME, IT'S NOT GOING TO DO ANYTHING". PT SITS UP AT SIDE OF BED AND UNPACKS FOOD WITHOUT DIFFICULTY. PLAN OF CARE REVIEWED, PT VERBALIZES UNDERSTANDING AND DENIES QUESTIONS. PT DENIES NEEDS AT THIS TIME. CALL ELDRIDGE WITHIN REACH, AGREES TO CALL PRN.
--- NOTE | 2020-10-11 | NUR ---
PT APPEARS TO BE SLEEPING COMFORTABLY, LAYING IN BED WITH EYES CLOSED, RESPIRATIONS REGULAR AND UNLABORED, NO APPARENT DISTRESS. CALL ELDRIDGE REMAIN WITHIN REACH.
[2020-10-11 04:00] VITALS: BP 99/55
--- NOTE | 2020-10-11 04:15 | NUR ---
PT LAYING IN BED AWAKE, DENIES NEEDS AT THIS TIME. CALL ELDRIDGE WITHIN REACH, AGREES TO CALL PRN.
[2020-10-11 06:11] LABS: HEMATOCRIT 37.5 % (39.0-50.0); HEMOGLOBIN 11.6 g/dl (14.0-18.0); IMMATURE GRANULOCYTES 0.6 % (0.0-5.0); MEAN CELL VOLUME 85.4 fL CALC (80.0-100.0); MEAN CORPUSCULAR HGB 26.4 pG CALC (26.0-32.0); MEAN CORPUSCULAR HGB CONC 30.9 g/dL CAL (32.0-36.0); NEUT# 3.6 thou/uL (1.82-7.42); RED BLOOD COUNT 4.39 mill/uL (4.70-6.10); RED CELL DISTRI WIDTH 13.9 % (11.5-15.5)
[2020-10-11 06:25] LABS: ALBUMIN 3.2 g/dL (3.2-5.0); ALKALINE PHOSPHATASE 65 u/l (38-126); ANION GAP 13 (6-22 (CALC)); BILIRUBIN, TOTAL 0.5 mg/dL (0.0-1.4); BUN 8 mg/dL (9-20); BUN/CREATININE RATIO 14 (12-20 (CALC)); CARBON DIOXIDE 26 mmol/l (22-30); CHLORIDE 103 mmol/l (95-108); CREATININE 0.6 mg/dL (0.7-1.3); GFR > 60 ML/MIN (>=60 (CALC)); GFR FOR AFR.AMER. > 60 ML/MIN (>=60 (CALC)); POTASSIUM 4.2 mmol/l (3.5-5.1); SGOT/AST 20 u/l (17-59); SODIUM 137 mmol/l (137-146); TOTAL PROTEIN 6.4 g/dL (6.3-8.2)
[2020-10-11 08:15] VITALS: BP 105/53
--- NOTE | 2020-10-11 08:15 | NUR ---
ASSESSMENT IS COMPLETED: IV SITE IS FREE FROM REDNESS OR EDMEA. HR IS REG,PULSES ARE STRONG X4, ABD IS SOFT WITH ACTIVE BS. BREATH SOUNDS ARE CLEAR,BILATERALLY. CONTINUE TO OSBERVE AND MONITOR.
[2020-10-11] MEDS ORDERED: LEVAQUIN750 M1 PO (08:29)
[2020-10-11] MEDS ORDERED: DOXYCYCL HYC100 MG PO (08:30)
--- NOTE | 2020-10-11 10:10 | NUR ---
IV SITE DISCONITNUED CATHETER INTACT. NOR EDNESS ORE DINESH.DISCHARGE INSTRUCTIONS GIVEN TO PT AND VERBALIZED UNDERSTANIDNG. PT HAD CALLED FAMILY TO PICK HIM UP.
--- NOTE | 2020-10-11 10:20 | NUR ---
Discharge instructions given. Patient verbalizes understanding of same. Discharged in stable condition via Ambulatory to Home with family. All belongings sent with pt.
--- NOTE | 2020-10-11 11:56 | NUR ---
INFORMED PT'S FAMILY RE: JAYE ROD NEEDING TO SPEAK WITH PT. WILL INFORM HIM
== END 2020-10-11 10:13 | disposition home or self-care (01) | DRG 177 ==
LOC: ED 19:14 → ED-I 21:44 → ED 21:57 → MS2 21:58
PROVIDERS: Family Medicine; Nurse Practitioner; ADMIT Internal Medicine; ATTEND Internal Medicine
DX: E84.0 Cystic fibrosis with pulmonary manifestations (principal); B37.1 Pulmonary candidiasis; J45.909 Unspecified asthma, uncomplicated; Z87.01 Personal history of pneumonia (recurrent); Z88.1 Allergy status to other antibiotic agents; Z86.14 Personal history of Methicillin resistant Staphylococcus aureus infection; Z20.822 Contact with and (suspected) exposure to COVID-19
CPT/HCPCS: G0378; J1650

== ENCOUNTER 2020-10-30 23:31 | Observation (INO) | payer SELFPAY ==
[~2020-10-30] VITALS: Ht 175.3 cm; Wt 56.0 kg
[~2020-10-30 23:31] MED LIST changes: +CALCIUM + D PO; +DEKAS ESSENTIAL PO; +DOK100 MG PO; +DRONABINOL5 MG PO; +GERI-KOT8.6 MG PO; +PROTONIX40 M2 PO; +ZITHROMAX250 MG PO
--- NOTE | 2020-10-30 23:34 | NUR ---
AMBULATORY FROM OUTSIDE TO ROOM 15. TRIAGED AT BEDSIDE.
[2020-10-31 00:08] LABS: HEMATOCRIT 39.3 % (39.0-50.0); HEMOGLOBIN 12.7 g/dl (14.0-18.0); IMMATURE GRANULOCYTES 0.7 % (0.0-5.0); MEAN CELL VOLUME 83.4 fL CALC (80.0-100.0); MEAN CORPUSCULAR HGB CONC 32.3 g/dL CAL (32.0-36.0); NEUT# 7.1 thou/uL (1.82-7.42); RED BLOOD COUNT 4.71 mill/uL (4.70-6.10); RED CELL DISTRI WIDTH 14.5 % (11.5-15.5)
--- NOTE | 2020-10-31 00:15 | NUR ---
Reassessment of patient completed. No distress noted.
[2020-10-31 00:27] LABS: ALBUMIN 3.6 g/dL (3.2-5.0); ALKALINE PHOSPHATASE 88 u/l (38-126); ANION GAP 14 (6-22 (CALC)); BUN 3 mg/dL (9-20); BUN/CREATININE RATIO 6 (12-20 (CALC)); CARBON DIOXIDE 25 mmol/l (22-30); CHLORIDE 97 mmol/l (95-108); CREATININE 0.5 mg/dL (0.7-1.3); GFR > 60 ML/MIN (>=60 (CALC)); GFR FOR AFR.AMER. > 60 ML/MIN (>=60 (CALC)); POTASSIUM 3.7 mmol/l (3.5-5.1); SGOT/AST 15 u/l (17-59); SODIUM 132 mmol/l (137-146)
[2020-10-31 00:38] LABS: MYOGLOBIN 8 ng/mL (0 - 121)
--- NOTE | 2020-10-31 01:02 | NUR ---
Reassessment of patient completed. No distress noted.
--- NOTE | 2020-10-31 01:30 | NUR ---
[facility]
[2020-10-31 01:34] VITALS: BP 101/57
[2020-10-31 01:48] LABS: URINE BILIRUBIN - DIPSTICK NEGATIVE (NEGATIVE); URINE BLOOD DIPSTICK NEGATIVE (NEGATIVE); URINE COLOR YELLOW; URINE GLUCOSE - DIPSTICK NEGATIVE (NEGATIVE); URINE KETONE NEGATIVE (NEGATIVE); URINE LEUK ESTERASE NEGATIVE (NEGATIVE); URINE PH 7.5 (4.5-8.0); URINE PROTEIN - DIPSTICK NEGATIVE (NEG-TRACE); URINE SPECIFIC GRAVITY 1.015
--- NOTE | 2020-10-31 01:48 | NUR ---
PT TRANSPORTED TO ROOM IN BED BY RN
[2020-10-31 01:54] LABS: URINE NITRITE - DIPSTICK NEGATIVE (Negative)
--- NOTE | 2020-10-31 02:10 | NUR ---
RECEIVED REPORT FROM NURSE OSIEL, PATIENT TRANSPORTED VIA BED HOOKED TO O2 @ 2LPM VIA NC, BREATHING SHALLOW, PRODUCTIVE COUGH YELLOW THICK SMALL AMOUNT, DENIES PAIN AT THIS TIME, TORADOL EFFECTIVE GIVEN IN ED, HOOKED TO TELE INITIAL READING SR 85, LBM 10/30. PATIENT HOOKED O NS @ 125CC/HR INFUSING WELL ON RAC G 20, ADMISSION ASSESSMENT COMPLETED, PATIENT ORIENTED TO ROOMA ND CALL LIGHT SYSTEM, CALL LIGHT AT REACH.
[2020-10-31 03:53] VITALS: BP 90/56
--- NOTE | 2020-10-31 05:36 | NUR ---
PATIENT RESTING IN BED WITH EYES CLSOED, BREATHING UNLABORED, NOT IN DISTRESS CALL LIGHT AT REACH.
--- NOTE | 2020-10-31 06:04 | NUR ---
RECEIVED A PHONE CALL FROM ED HR IS ON THE 40'S 43 BPM, ASSESS PATIENT DENIES DISCOMFORTS AT THIS TIME, COMFORTABLY RESTING, MANUAL HR 49BPM ON FULL MINUTE, WILL CONTINUE TO MONITOR.
--- NOTE | 2020-10-31 06:17 | NUR ---
RECEIVED PHONE CALL FROM ED HR 47 AT THIS TIME,NOTIFIED ENGINEER BYPRODUCT BRENDA RODRÍGUEZ APRN NO NEW ORDERS MADE, WILL CONTINUE TO MONITOR.
--- NOTE | 2020-10-31 07:00 | NUR ---
RECIEVED REPORT FROM FRANCISCO GAXIOLA
[2020-10-31 07:35] VITALS: BP 94/50
--- NOTE | 2020-10-31 07:38 | NUR ---
PT RESTING IN SEMI FOWLERS POSITION. PT IS A/O X3. ASSESSMENT AND VITALS OBATINED. RESPIRATIONS ARE EVEN AND UNLABORED ON 2L NC WITH NO DISTRESS NOTED. LUNG SOUNDS ARE CLEAR.PRODUCTIVE COUGH NOTED. HEART RHTHM IS NORMAL WITH TELE IN PLACE, SR PER ER MONITORING. BOWEL SOUNDS ARE ACTIVE. RADIAL AND PEDAL PULSES ARE STRONG. #20G IN RAC INFUSING WITH IVF PER ORDER, SITE APPEARS HEALTHY AND PATENT.PT COMPLAINS OF PRESSURE IN CHEST FROM FEELING SOB TO BE NOTIFIED. PT DEEIS OF ANY NEEDS AT THIS TIME. ALL SAFETY PRECAUTIONS ARE IN PLACE WITH CALL LIGHT IN REACH. WILL CONTINUE TO MONITOR.
--- NOTE | 2020-10-31 08:36 | NUR ---
UKE OPERATOR NOTFIED THAT PT HR IS "IRREGULAR" ON TELE BY TELE MONITOR. WHEN ASKED WHAT IRRGULAR WAS, UKE OPERATOR WAS INFORMED THAT PT WAS SA 54. RT AT BEDSIDE COMPLETING EKG. PT STATES HE HAS THE SAME CHEST PRESSURE HE HAS BEEN HAVING. PT STATES " IT LIKE A SOB PAIN." JEANETTE,ANTHONY NOTFIED.
--- NOTE | 2020-10-31 09:15 | NUR ---
DR CANDELARIA AT BEDSIDE.
[2020-10-31 10:51] VITALS: BP 96/50
--- NOTE | 2020-10-31 12:25 | NUR ---
PT RESTING IN LOW FOWLERS POSITION ON LEFT SIDE ON PHONE. REPSIRATIONS ARE EVEN AND UNLABORED ON 2L NC.TELE MONITORING IN PLACE. IVF INFUSING PER ORDER, SITE REMAINS HEALTHY AND PATENT. PT DENIES OF ANY PAINS OR DISCOMFORTS AT THIS TIME. ALL SAFETY PRECAUTIONS ARE IN PLACE. WILL CONTINUE TO MONITOR.
--- NOTE | 2020-10-31 12:58 | NUR ---
RT AT BEDSIDE
[2020-10-31 14:57] VITALS: BP 90/40
--- NOTE | 2020-10-31 16:16 | NUR ---
PT RESTING IN SEMI FOWLERS POSITION. PT REMAINS A/O X3. RESPIRATIONS ARE EVEN AND UNLABROED WITH NO DISTRESS NOTED ON 2L NC. PRODUCTIVE COUGH NOTED. PT REQUEST SOMETHING TO ASSIST WITH COUGH, NO NEW ORDERS OBTAINED. #20G IN RAC REMAINS INFUSING WITH IVF PER ORDER, SITE REMAINS HEALTHY AND PATENT. PT DENIES OF ANY PAINS OR DISCOMFORTS. ALL SAFETY PRECAUTIONS ARE IN PLACE WITH CALL LIGHT IN REACH. WILL CONTINUE TO MONITOR.
[2020-10-31 18:40] VITALS: BP 92/53
--- NOTE | 2020-10-31 19:00 | NUR ---
REPORT RECEIVED FROM Jessica MCKEE LPN, CARE OF PT ASSUMED AT THIS TIME.
--- NOTE | 2020-10-31 19:55 | NUR ---
PT LAYING IN BED, NO APPARENT DISTRESS, RESPIRATIONS REGULAR AND UNLABORED, 02 AT 2L VIA NC ON. R-AC 20G PATENT AND INFUSING NS @ 125. PHYSICAL ASSESMENT COMPLETE. LUNGS ARE CLEAR, PT REPORTS HE FEELS HE BREATHES BETTER WITH O2 ON. COMPLAINS OF COUGH, BARKING COUGH NOTED DURING ASSESMENT. REPORTS COUGH IS DRYER AND LESS PRODUCTIVE THAN PRIOR. REPORTS STERNAL DISCOMFORT WITH COUGH. PLAN OF CARE REVIEWED, PT VERBALIZES UNDERSTANDING AND DENIES QUESTIONS. REQUESTS TO BE SET UP FOR A SHOWER, DENIES FURTHER NEEDS. CALL ELDRIDGE WITHIN REACH, AGREES TO CALL PRN.
--- NOTE | 2020-10-31 19:59 | NUR ---
PT TO SHOWER, FOREST LOGISTICS MANAGER AWARE.
--- NOTE | 2020-10-31 20:45 | NUR ---
SPOKE WI DR. SAMAYOA RE: PERSISTENT COUGH AND RELATED MUSKULOSKELETAL/STERNAL PAIN. ORDER FOR ULTRAM AND ROBITUSSIN RECEIVED. DR. SAMAYOA ALSO ORDERS CPT AND FLUTTER VALVE/ACAPELLA AND REQUEST PT BRING CPT VEST FROM HOME.
--- NOTE | 2020-10-31 21:07 | NUR ---
SCHEDULED MEDICATIONS ADMINISTERED. PRN ULTRAM AND ROBITUSSIN ADMINISTERED FOR COUGH AND PAIN. SEE E-MAR.
--- NOTE | 2020-10-31 21:13 | NUR ---
Jessica ZURITA TRANSITION ADVISOR ADVISED OF CPT/VEST AND ACAPELLA ORDERS.
--- NOTE | 2020-11-01 | NUR ---
PT LAYING IN BED WITH EYES CLOSED, RESPIRATIONS REGULAR AND UNLABORED, NO APPARENT DISTRESS, APPEARS TO BE SLEEPING COMFORTABLY. CALL ELDRIDGE REMAINS WITHIN REACH.
[2020-11-01 00:39] VITALS: BP 87/38
[2020-11-01 04:26] VITALS: BP 93/55
--- NOTE | 2020-11-01 04:36 | NUR ---
EMBALMER APPRENTICE BENNETT AT BEDSIDE TO COLLECT AM LABS.
[2020-11-01 05:46] LABS: HEMATOCRIT 39.8 % (39.0-50.0); HEMOGLOBIN 12.4 g/dl (14.0-18.0); MEAN CELL VOLUME 85.8 fL CALC (80.0-100.0); MEAN CORPUSCULAR HGB 26.7 pG CALC (26.0-32.0); MEAN CORPUSCULAR HGB CONC 31.2 g/dL CAL (32.0-36.0); RED BLOOD COUNT 4.64 mill/uL (4.70-6.10); RED CELL DISTRI WIDTH 14.3 % (11.5-15.5)
[2020-11-01 06:06] LABS: ANION GAP 15 (6-22 (CALC)); BUN 7 mg/dL (9-20); BUN/CREATININE RATIO 17 (12-20 (CALC)); CARBON DIOXIDE 21 mmol/l (22-30); CHLORIDE 104 mmol/l (95-108); CREATININE 0.4 mg/dL (0.7-1.3); GFR > 60 ML/MIN (>=60 (CALC)); GFR FOR AFR.AMER. > 60 ML/MIN (>=60 (CALC)); SODIUM 135 mmol/l (137-146)
[2020-11-01 06:07] LABS: POTASSIUM 4.6 mmol/l (3.5-5.1)
--- NOTE | 2020-11-01 06:57 | NUR ---
PT RESTING COMFORTABLY IN BED. NAD. VSS. FARM DEMONSTRATOR TO MONITOR.
--- NOTE | 2020-11-01 07:00 | NUR ---
RECIEVED REPORT FROM FRANCISCO DESIR
--- NOTE | 2020-11-01 07:31 | NUR ---
PT RESTING IN LOW FOWLERS POSITION. PT IS A/O X3. ASSESSMENT AND VITALS OBTAINED. BP 99/52, HR 94, O2 94% ON 2L NC. RESPIRATIONS ARE EVEN AND UNLABORED WITH NO DISTRESS NOTED. LUNG SOUNDS ARE CLEAR. HEART RHYTHM IS NORMAL WITH TELE MONITORING IN PLACE. BOWEL SOUNDS ARE ACTIVE. RADIAL AND PEDAL PULSES ARE STRONG. #20G IN RFA INFUSING WITH IVF PER ORDER, SITE REMAINS HEALTHY AND PATENT. SKIN IS WARM AND INTACT. PT DENIES OF ANY PAINS AT THIS TIME. ALL SAFETY PRECAUTIONS ARE IN PLACE WITH CALL LIGHT IN REACH. ENCOURAGED PT TO CALL FOR ASSISTANCE IF NEEDED. WILL CONTINUE TO MONITOR.
[2020-11-01 07:40] VITALS: BP 99/52
--- NOTE | 2020-11-01 07:58 | NUR ---
WRITTER NOTIFIED BY TELE MONITOR LILIA HR WAS IN LEILANI 40'S. WRITTER INFORMED TELE MONITOR THAT PT HAS BEEN RUNNING LOW, MD IS AWARE AND PT REMAINS ASYMPTOMATIC.
--- NOTE | 2020-11-01 08:54 | NUR ---
MORNING MEDS ADMINISTERED. PT REQUEST FOR PAIN MED AT THIS TIME, ULTRAM ADMINISTERED. PT DENIES OF ANY OTHER NEEDS. ALL SAFETY PRECAUTIONS ARE IN PLACE. WILL CONTINUE TO MONITOR.
--- NOTE | 2020-11-01 09:38 | NUR ---
DR CANDELARIA AT BEDSIDE DISCUSSING POC WITH PT
[2020-11-01] MEDS ORDERED: PROTONIX40 M2 PO (09:41)
[2020-11-01] MEDS ORDERED: PHENERGAN25 MG/TAB PO (09:41)
[2020-11-01] MEDS ORDERED: DOK100 MG PO (09:42)
[2020-11-01] MEDS ORDERED: DEKAS ESSENTIAL PO (09:43)
[2020-11-01] MEDS ORDERED: GERI-KOT8.6 MG PO (09:44)
[2020-11-01] MEDS ORDERED: DRONABINOL5 MG PO (09:45)
[2020-11-01 10:41] VITALS: BP 109/63
--- NOTE | 2020-11-01 10:43 | NUR ---
RT AT BEDSIDE FOR BREATHING TREATMENT.
--- NOTE | 2020-11-01 10:43 | NUR ---
PT RESTING COMFORTABLE, ON ROOPM AIR. NAD. VSS. TREE SCOUT TO MONITOR.
--- NOTE | 2020-11-01 12:10 | NUR ---
PT RESTING IN SEMI FOWLERS POSOTION. PT REMAINS A/OX3. RESPIRATIONS ARE SHALLOW ON 2L NC. #20G IN RFA INFUSING WITH IVF PER ORDER, SITE APPEARS HEALTHY AND PATENT.TELE MONITORING REMAINS IN PLACE. PT DENIES OF ANY NEEDS AT THIS TIME. ALL SAFTEY PRECAUTIONS ARE IN PLACE WITH CALL LIGHT IN REACH. WILL CONTINUE TO MONITOR
--- NOTE | 2020-11-01 13:10 | NUR ---
PT RESTING IN SEMI FOWLERS POSITION. RESPIRATIONS AR EVEN AND UNLABORED NEW IVF ADMINISTERED PER ORDER, SITE REMAINS HELTHY AND PATENT. TELE MONITORING IN PLACE. PT DENIES OF ANY NEEDS AT THIS TIME. ALL SAFETY PRECAUTIONS ARE IN PLACE WITH CALL LIGHT IN REACH. WILL CONTINUE TO MONITOR.
--- NOTE | 2020-11-01 14:30 | NUR ---
RECEIVED REPORT FROM OFF GOING NURSE. PT RESTING IN THE BED AXOX3, DENIES PAIN, NO SOB NOTED AT THIS TIME. IV INFUSING. 02 2L NC. REPOSITIOEND FOR COMFORT, SIDE RAILS UP CALL LIGHT IN REACH BED LOCKED IN LOW POSITION, WILL CONTINUE TO MONIOTR THE PATIENT.
[2020-11-01 15:00] VITALS: BP 99/50
--- NOTE | 2020-11-01 17:04 | NUR ---
PT RESTING COMFORTABLE IN THE BED NO DISTRESS NOTED AT THIS TIME.
[2020-11-01 19:00] VITALS: BP 109/49
--- NOTE | 2020-11-01 20:00 | NUR ---
PT IN BED WITH EYES OPEN AND ABLE TO MAKE NEEDS KNOWN. SKIN WARM TO TOUCH. RESPIRATION EVEN AND NON LABORED ABD SOB NOTED ON EXERRTION. PT HAS PRODUCTIVE COUGH NOTED BUT WAS UNABLE TO EXAMINE SPUTUM. PT IS AMBULATORY WITH NO COMPLICATIONS. IV SITE TO RIGHT ARM INTACT WITH NO S/S OF INFECTION/INFITRATION. NORMAL SALINE 0.9% AT 125ML/HR AND TOLERATING WELL. ON SOLUMEDROL IV AND TOLERATING WELL. WILL CONTINUE TO OBSERVE.
[2020-11-02 00:04] VITALS: BP 90/42
[2020-11-02 04:00] VITALS: BP 94/48
--- NOTE | 2020-11-02 04:18 | NUR ---
PT IN BED WITH EYES CLOSED AND NO S/S OF DISTRESS NOTED. MEDICATIONS GIVEN AND TOLERATED WELL. RESPIRATION EVEN AND NON LABORED AND COUGH NOTED. TOLERATING NEB TREATMENTS WELL. CALL LIGHT IS WITHIN REACH. WILL CONTINUE TO OBSERVE.
[2020-11-02 05:33] LABS: HEMATOCRIT 37.8 % (39.0-50.0); HEMOGLOBIN 11.8 g/dl (14.0-18.0); MEAN CELL VOLUME 85.3 fL CALC (80.0-100.0); MEAN CORPUSCULAR HGB 26.6 pG CALC (26.0-32.0); MEAN CORPUSCULAR HGB CONC 31.2 g/dL CAL (32.0-36.0); RED BLOOD COUNT 4.43 mill/uL (4.70-6.10); RED CELL DISTRI WIDTH 14.4 % (11.5-15.5)
[2020-11-02 05:52] LABS: ANION GAP 11 (6-22 (CALC)); BUN 7 mg/dL (9-20); BUN/CREATININE RATIO 17 (12-20 (CALC)); CHLORIDE 102 mmol/l (95-108); CREATININE 0.4 mg/dL (0.7-1.3); GFR > 60 ML/MIN (>=60 (CALC)); GFR FOR AFR.AMER. > 60 ML/MIN (>=60 (CALC)); POTASSIUM 4.5 mmol/l (3.5-5.1); SODIUM 134 mmol/l (137-146)
[2020-11-02 06:02] LABS: CARBON DIOXIDE 26 mmol/l (22-30)
--- NOTE | 2020-11-02 06:45 | NUR ---
PT ASLEEP RESTING COMFORTABLY. NAD. VSS. MALCOM TX WELL.
--- NOTE | 2020-11-02 07:00 | NUR ---
RECIEVED REPORT FROM INDIO RN
--- NOTE | 2020-11-02 08:00 | NUR ---
PT SITTING UP ON SIDE OF BED EATING BREAKFAST. PT IS A/O X2. ASSESSMENT AND VITALS COMPLETED. BP 117/, HR 55, O2 95% ON 2L NC. RESPIRATIONS ARE EVEN AND UNLABORED WITH NO SIGNS OF DISTRESS NOTED. LUNG SOUND ARE CLEAR ON LEFT AND DIMINISHED ON RIGHT.PRODUCTIVE COUGH NOTED. HEART RHYTHM IS NORMAL WITH TELE IN PLACE, SB PER ER MONITORING. BOWEL SOUNDS ARE HYPOACTIVE,LAST REPORTED BM 10/30/20.MD TO BE NOTIFIED. RADIAL AND PEDAL PULSES ARE STRONG. #20G IN RFA INFUSING WITH IVF PER ORDER, SITE REMAINS HEALTHY AND PATENT. PT DENIES OF ANY PAINS OR DISCOMFORTS AT THIS TIME. ALL SAFETY PRECAUTIONS ARE IN PLACE WITH CALL LIGHT IN REACH. WILL CONTINUE TO MONITOR.
[2020-11-02 08:01] VITALS: BP 117/56
[2020-11-02 10:47] VITALS: BP 100/52
--- NOTE | 2020-11-02 11:56 | NUR ---
PT RESTING IN SEMI FOWLERS POSITION. RESPIRATIONS ARE EVEN AND UNLABORED WITH NO DISTRESS NOTED. IVF INFUSING WITH EASE, SITE REMAINS HEALTHY AND PATENT. PT DENIES OF ANY PAINS OR DISCOMFORTS. ALL SAFETY PRECAUTIONS ARE IN PLACE WITH CALL LIGHT IN REACH. WILL CONTINUE TO MONITOR.
--- NOTE | 2020-11-02 12:44 | NUR ---
PT RESTING IN SEMI FOWLERS POSITION. FACE IS FLUSHED, TEMP RESULTING IN 97.4. PT STATES " ITS JUST HOT." BLANKETS REMOVED. IVF INFUSING WITH PER, SITE REMAINS HEALTHY AND PATENT. MOM AND STOOL SOFTNER ADMINISTERED. PT DENIES OF ANY PAINS OR DISCOMFORTS AT THIS TIME. ALL SAFTEY PRECAUTIONS ARE IN PLACE WITH CALL LIGHT IN REACH. WILL CONTINUE TO MONITOR
[2020-11-02 15:03] VITALS: BP 118/59
--- NOTE | 2020-11-02 15:45 | NUR ---
PT RESTING IN SEMI FOWLERS POSITION ON PHONE. REPSIRATIONS ARE EVEN AND UNLABORED WITH NO DISTRESS NOTED. IVF INFUSING WITH IVF, SITE REMAINS HEALTHY AND PATENT. TELE MONITORING IN PLACE. PT DENIES OF ANY NEEDS AT THIS TIME. ALL SAFETY PRECAUTIONS ARE IN PLACE WITH CALL LIGHT IN REACH. WILL CONTINUE TO MONITOR.
--- NOTE | 2020-11-02 18:36 | NUR ---
RT AT BEDSIDE TO ADMINISTER BREATHING TREATMENT
--- NOTE | 2020-11-02 18:47 | NUR ---
PT O2 SAT 94% ON ROOM AIR. 2L NC AT BEDSIDE PRN. RESPIRATIONS REMAINS EVEN AND UNLABRED. INSTRUCTED TO REAPPLY IF FEELING SOB
[2020-11-02 19:00] VITALS: BP 111/62
--- NOTE | 2020-11-02 19:52 | NUR ---
RECEIVED REPORT FOR THIS PT AND IN SHOWER AT THIS TIME. NO RESPIRATORY DISTRESS NOTED. CALL LIGHT WITHIN REACH. WILL CONTINUE TO OBSERVE.
[2020-11-03] VITALS: BP 107/58
--- NOTE | 2020-11-03 02:00 | NUR ---
PT IN BED WITH EYES CLOSED. NO S/S OF DISTRESS/DISCOMFORT. CALL LIGHT WITHIN REACH AND WILL CONTINUE TO OBSERVE
[2020-11-03 04:00] VITALS: BP 96/49
--- NOTE | 2020-11-03 05:21 | NUR ---
PT IN BED WITH EYES CLOSED. NO S/S OF DISTRESS/DISCOMFORT. DENIES PAIN AND DISCOMFORT. EASILY AROUSED. PT ON ROOM AIR AND OXYGEN LEVEL 95%. CONTINENT OF B/B AND HAD SMALL BOWEL MOVEMENT. TOLERATING FLUIDS WELL. CALL LIGHT WITHIN REACH AND HOB ELEVATED. PT HAS NORMAL SALINE RUNNING AT 125ML/HR AND TOLERATING WELL. CALL LIGHT WITHIN REACH. WILL CONTINUE TO OBSERVE.
[2020-11-03 05:41] LABS: HEMATOCRIT 39.9 % (39.0-50.0); HEMOGLOBIN 12.3 g/dl (14.0-18.0); MEAN CELL VOLUME 85.8 fL CALC (80.0-100.0); MEAN CORPUSCULAR HGB 26.5 pG CALC (26.0-32.0); MEAN CORPUSCULAR HGB CONC 30.8 g/dL CAL (32.0-36.0); RED BLOOD COUNT 4.65 mill/uL (4.70-6.10); RED CELL DISTRI WIDTH 14.5 % (11.5-15.5)
[2020-11-03 06:00] LABS: ANION GAP 12 (6-22 (CALC)); BUN 10 mg/dL (9-20); BUN/CREATININE RATIO 23 (12-20 (CALC)); CARBON DIOXIDE 27 mmol/l (22-30); CHLORIDE 101 mmol/l (95-108); CREATININE 0.4 mg/dL (0.7-1.3); GFR > 60 ML/MIN (>=60 (CALC)); GFR FOR AFR.AMER. > 60 ML/MIN (>=60 (CALC)); POTASSIUM 4.7 mmol/l (3.5-5.1); SODIUM 135 mmol/l (137-146)
--- NOTE | 2020-11-03 06:40 | NUR ---
PT RETING COMFORTABLY IN BED. REGAN. VSS.
[2020-11-03 07:20] VITALS: BP 115/65
--- NOTE | 2020-11-03 08:22 | NUR ---
SHIFT CHANGE REPORT, PT SLEEPING BUT AROUSES TO VERBAL STIMULI, ORIENTED, IVF INFUSING, NO C/O DISCOMFORT, CALL ELDRIDGE IN REACH.
[2020-11-03] MEDS ORDERED: PREDNISONE10 MG PO (11:11)
[2020-11-03] MEDS ORDERED: LEVAQUIN750 M1 PO (11:11)
[2020-11-03 11:18] VITALS: BP 138/76
--- NOTE | 2020-11-03 11:56 | NUR ---
PT O2 SAT AT REST ON R/A = 92%, ON AMBULATION O2 SATS @ 92-94% ON R/A BUT PT WAS UNABLE TO TOLERATE 6 MINS AMBULATION HE EXPERIENCED EXERTIONAL SOB WITH ELEVATED HR, AFTER RESTING O2 STAYED @ 92% ON R/A
--- NOTE | 2020-11-03 13:26 | NUR ---
Discharge instructions given. Patient verbalizes understanding of same. Discharged in stable condition via Ambulatory to Home with family. All belongings sent with pt. PT ADVISED TO CALL STAFF WHEN SO HE CAN BE TRANSPORTED OFUNIT HOWEVER, PT DECIDED TO LEAVE UNIT INDEPENDENTLY WITHOUT CALLING OR INFORMONG STAFF MEMBERS. D/C INSTRUCTIONS ALREADY REVIEWED WITH PT WHO STATED UNDERSTANDING, IV CATHETER REMOVED AND TELE MONITOR REMOVED AND PLACED AT [facility].
== END 2020-11-03 13:20 | disposition home or self-care (01) | DRG 177 ==
LOC: ED 23:31 → ED-I 10-31 00:33 → ED 10-31 00:56 → MS2 10-31 00:58
PROVIDERS: Emergency Medicine; Nurse Practitioner; ADMIT Internal Medicine; ATTEND Internal Medicine
DX: J15.1 Pneumonia due to Pseudomonas (principal); E84.0 Cystic fibrosis with pulmonary manifestations; R09.02 Hypoxemia; J45.909 Unspecified asthma, uncomplicated; Z87.01 Personal history of pneumonia (recurrent); Z86.14 Personal history of Methicillin resistant Staphylococcus aureus infection; Z20.822 Contact with and (suspected) exposure to COVID-19
CPT/HCPCS: G0378

== ENCOUNTER 2020-11-29 | Emergency (ER) | payer SELFPAY ==
[~2020-11-29] MED LIST changes: +PREDNISONE10 MG PO
[2020-11-29 13:29] LABS: HEMATOCRIT 41.5 % (39.0-50.0); HEMOGLOBIN 13.2 g/dl (14.0-18.0); IMMATURE GRANULOCYTES 0.5 % (0.0-5.0); MEAN CORPUSCULAR HGB 26.4 pG CALC (26.0-32.0); MEAN CORPUSCULAR HGB CONC 31.8 g/dL CAL (32.0-36.0); NEUT# 13.04 thou/uL (1.82-7.42); RED CELL DISTRI WIDTH 13.9 % (11.5-15.5)
[2020-11-29 13:41] LABS: ALKALINE PHOSPHATASE 78 u/l (38-126); ANION GAP 14 (6-22 (CALC)); BILIRUBIN, TOTAL 0.9 mg/dL (0.0-1.4); BUN 5 mg/dL (9-20); BUN/CREATININE RATIO 9 (12-20 (CALC)); CARBON DIOXIDE 25 mmol/l (22-30); CHLORIDE 97 mmol/l (95-108); CREATININE 0.5 mg/dL (0.7-1.3); GFR > 60 ML/MIN (>=60 (CALC)); GFR FOR AFR.AMER. > 60 ML/MIN (>=60 (CALC)); POTASSIUM 4.3 mmol/l (3.5-5.1); SGOT/AST 19 u/l (17-59); SODIUM 132 mmol/l (137-146); TOTAL PROTEIN 7.7 g/dL (6.3-8.2)
[2020-11-29] MEDS ORDERED: ZPAK PO (14:07)
== END 2020-11-29 15:42 | disposition home or self-care (01) | DRG 179 ==
PROVIDERS: Emergency Medicine
DX: E84.0 Cystic fibrosis with pulmonary manifestations (principal); J45.909 Unspecified asthma, uncomplicated; Z20.822 Contact with and (suspected) exposure to COVID-19

== ENCOUNTER 2020-12-16 20:24 | Observation (INO) | payer SELFPAY ==
[~2020-12-16] VITALS: Ht 175.3 cm; Wt 52.0 kg
[~2020-12-16 20:24] MED LIST changes: +ZPAK PO
--- NOTE | 2020-12-16 20:43 | NUR ---
WALKED TO THE ROOM, SOB WITH EXCERTION NOTED, SPO2 INCREASED TO 93% WHEN RESTED AND HR DOWN TO 84.
--- NOTE | 2020-12-16 21:05 | NUR ---
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
[2020-12-16 21:07] LABS: HEMATOCRIT 40.2 % (39.0-50.0); HEMOGLOBIN 13.1 g/dl (14.0-18.0); IMMATURE GRANULOCYTES 0.5 % (0.0-5.0); MEAN CELL VOLUME 82.2 fL CALC (80.0-100.0); MEAN CORPUSCULAR HGB 26.8 pG CALC (26.0-32.0); MEAN CORPUSCULAR HGB CONC 32.6 g/dL CAL (32.0-36.0); NEUT# 11.43 thou/uL (1.82-7.42); RED BLOOD COUNT 4.89 mill/uL (4.70-6.10); RED CELL DISTRI WIDTH 14.1 % (11.5-15.5)
[2020-12-16 21:33] LABS: INTERNATIONAL NORMALIZED RATIO 1.2 RATIO (0.7-1.3); PROTHROMBIN TIME 11.9 SECONDS (9.0-12.5)
[2020-12-16 21:37] LABS: ALBUMIN 4.2 g/dL (3.2-5.0); ALKALINE PHOSPHATASE 90 u/l (38-126); ANION GAP 15 (6-22 (CALC)); BILIRUBIN, TOTAL 1.5 mg/dL (0.0-1.4); BUN 9 mg/dL (9-20); BUN/CREATININE RATIO 17 (12-20 (CALC)); CARBON DIOXIDE 26 mmol/l (22-30); CHLORIDE 92 mmol/l (95-108); CREATININE 0.5 mg/dL (0.7-1.3); GFR > 60 ML/MIN (>=60 (CALC)); GFR FOR AFR.AMER. > 60 ML/MIN (>=60 (CALC)); POTASSIUM 3.8 mmol/l (3.5-5.1); SGOT/AST 19 u/l (17-59); SODIUM 129 mmol/l (137-146); TOTAL PROTEIN 8.2 g/dL (6.3-8.2)
[2020-12-16 21:40] LABS: D-DIMER 0.33 mg/L (0.19-0.60)
[2020-12-16 21:45] LABS: URINE BLOOD DIPSTICK NEGATIVE (NEGATIVE); URINE COLOR YELLOW; URINE GLUCOSE - DIPSTICK NEGATIVE (NEGATIVE); URINE KETONE 15 mg/dL (NEGATIVE); URINE LEUK ESTERASE NEGATIVE (NEGATIVE); URINE PH 7.5 (4.5-8.0); URINE PROTEIN - DIPSTICK TRACE mg/dL (NEG-TRACE); URINE SPECIFIC GRAVITY 1.015
[2020-12-16 21:57] LABS: URINE BILIRUBIN - DIPSTICK NEGATIVE (NEGATIVE); URINE NITRITE - DIPSTICK NEGATIVE (Negative)
--- NOTE | 2020-12-16 22:10 | NUR ---
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
--- NOTE | 2020-12-16 22:20 | NUR ---
PHONE REPORT TO NURSE BIGGS ON MS
--- NOTE | 2020-12-16 22:25 | NUR ---
PT TRANSPORTED TO [facility] VIA IN STABLE CONDITION
[2020-12-16 23:00] VITALS: BP 107/64; BP 108/69
--- NOTE | 2020-12-16 23:00 | NUR ---
PATIENT ADMITTED FROM ER VIA WHEELCHAIR WITH ER STAFF IN ATTENDANCE. PATIENT IS ABLE TO STAND AND TRANSFER TO BED. PATIENT IS AWAKE ALERT AND ORIENTEDX3. PATIENT WITH O2 VIA NASAL CANNULA IN PLACE. FORTAZ INFUSING VIA LEFT FOREARM SITE ORDERED FROM ER. PATIENT WITH CF EXACERBATION.AFEBRILE AT THIS TIME. PATIENT STATES THAT HE WAS HAVING SOME CHILLS AT HOME BUT DIDN'T CHECK HIS TEMP. SOB AND WHEEZING-BETTER SINCE GETTING NEB TREATMENTS, MEDS AND O2 HERE. PATIENT STATES THAT HE DID DO HIS LIFE VEST TREATMENT TODAY AT HOME FOR 1HOUR. OCC COUGH WITH THICK YELLOW SECREATIONS. PATIENT STATES THAT HE STILL HASN'T BEEN ABLE TO SEE THE PULMONARY SPEC IN [place] BECAUSE OF INSURANCE PROBLEMS. PATIENT ORIENTED TO ROOM AND SURROUNDINGS. INSTRUCTED ON USE OF NURSE CALL LIGHT SYSTEM TV REMOTE AND PHONE. PATIENT EATING FOOD BROUGHT IN FROM OUTSIDE. IVF NS HUNG AFTER FORTAZ FINISHED AT 125CC/HR. O2 VIA NASAL CANNULA AT 2LPM IN PLACE WITH O2 SAT OF 96%. SAFETY PRECAUTIONS REINFORCED. CALL LIGHT IN REACH. WILL CONT TO MONITOR.
--- NOTE | 2020-12-17 01:00 | NUR ---
PATIENT POSITIONED ON LEFT SIDE WITH EYES CLOSED WITH O2 VIA NASAL CANNULA IN PLACE AT 2LPM. RESPS ARE EVEN AND UNLABORED AT THIS TIME. IVF NS PATENT AND INFUSING VIA LEFT FOREARM SITE AT 125CC/HR. CALL LIGHT IN REACH. WILL CONT TO MONITOR.
[2020-12-17 04:00] VITALS: BP 85/48
--- NOTE | 2020-12-17 04:04 | NUR ---
PATIENT POSITIONED ON LEFT SIDE WITH EYES CLOSED. O2 VIA NASAL CANNULA IN PLACE. RESPS ARE EVEN AND UNLABORED. IVF NS PATENT AND INFUSING AT 125CC/HR. CALL LIGHT IN REACH. WILL CONT TO MONITOR.
[2020-12-17 07:26] VITALS: BP 89/46
--- NOTE | 2020-12-17 07:26 | NUR ---
PT SLEEPING IN BED. AWAKENED TO COMPLETE ASSESSMENT. A&O X4. O2 VIA NC @2L IN PLACE. COARSE BREATH SOUNDS HEARD UPON AUSCULTATION. #20G LAC INFUSING WITH NS @ 125ML/HR. 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 LIFE VEST UNAVAILABLE, PT TO TRY AND HAVE IT DROPPED OFF. NO OTHER NEEDS. ASSESSMENT COMPLETED. DISCUSSED POC. CALL LIGHT WITHIN REACH.
--- NOTE | 2020-12-17 09:29 | NUR ---
DR CANDELARIA AND Oriana NÚÑEZ APRN AT BEDSIDE DISCUSSING POC
[2020-12-17 16:00] VITALS: BP 96/54
--- NOTE | 2020-12-17 19:18 | NUR ---
PATIENT RESTING IN BED AT THIS TIME WITH O2 VIA NASAL CANNULA IN PLACE AT 3LPM. IVF NS PATENT AND INFUSING VIA LEFT FOREARM SITE AT 125CC/HR. SITE IS HEALTHY AT THIS TIME. PATIENT STATES THAT HE STILL WITH MOSTLY NON-PRODUCTIVE COUGH. LUNGS ARE COARSE THOUGHOUT. BM TODAY. DENIES ANY DIFFICULTY WITH URINATION. SAFETY PRECAUTIONS REINFORCED. CALL LIGHT IN REACH. WILL CONT TO MONITOR.
[2020-12-17 19:30] VITALS: BP 92/46
--- NOTE | 2020-12-17 22:20 | NUR ---
PATIENT RESTING IN BED AT THIS TIME DOING NEB TREATMENT. FORTAZ HUNG ORDERED VIA LEFT FOREARM SITE. SOLU-MEDROL GIVEN ORDERED. CALL LIGHT IN REACH. WILL CONT TO MONITOR.
--- NOTE | 2020-12-18 00:11 | NUR ---
PATIENT POSITIONED ON LEFT SIDE WITH O2 VIA NASAL CANNULA IN PLACE. EYES ARE CLOSED. RESPS ARE EVEN AND UNLABORED. IVF PATENT AND INFUSING VIA LEFT FOREARM SITE. CALL LIGHT IN REACH. WILL CONT TO MONITOR.
--- NOTE | 2020-12-18 02:35 | NUR ---
PATIENT POSITIONED ON LEFT SIDE WITH O2 VIA NASAL CANNULA IN PLACE. NO COMPLAINTS AT THIS TIME. IVF NS PATENT AND INFUSING VIA LEFT FOREARM SITE AT 125CC/HR. CALL LIGHT IN REACH. WILL CONT TO MONITOR.
[2020-12-18 04:00] VITALS: BP 93/46
[2020-12-18 05:11] LABS: IMMATURE GRANULOCYTES 0.5 % (0.0-5.0); MEAN CELL VOLUME 84.6 fL CALC (80.0-100.0); MEAN CORPUSCULAR HGB 26.8 pG CALC (26.0-32.0); MEAN CORPUSCULAR HGB CONC 31.7 g/dL CAL (32.0-36.0); NEUT# 10.63 thou/uL (1.82-7.42); RED BLOOD COUNT 4.03 mill/uL (4.70-6.10); RED CELL DISTRI WIDTH 13.9 % (11.5-15.5)
[2020-12-18 05:14] LABS: HEMATOCRIT 34.1 % (39.0-50.0); HEMOGLOBIN 10.8 g/dl (14.0-18.0)
[2020-12-18 05:34] LABS: ALKALINE PHOSPHATASE 72 u/l (38-126); ANION GAP 11 (6-22 (CALC)); BUN 9 mg/dL (9-20); BUN/CREATININE RATIO 20 (12-20 (CALC)); CARBON DIOXIDE 25 mmol/l (22-30); CHLORIDE 103 mmol/l (95-108); CREATININE 0.4 mg/dL (0.7-1.3); GFR > 60 ML/MIN (>=60 (CALC)); GFR FOR AFR.AMER. > 60 ML/MIN (>=60 (CALC)); POTASSIUM 3.9 mmol/l (3.5-5.1); SGOT/AST 14 u/l (17-59); SODIUM 135 mmol/l (137-146)
[2020-12-18 05:42] LABS: ALBUMIN 2.9 g/dL (3.2-5.0); BILIRUBIN, TOTAL 0.5 mg/dL (0.0-1.4); TOTAL PROTEIN 6.1 g/dL (6.3-8.2)
--- NOTE | 2020-12-18 06:03 | NUR ---
PATIENT RESTING IN BED WITH O2 VIA NASAL CANNULA IN PLACE AT 3LPM. IVF PATIENT AND INFUSING VIA LEFT FOREARM SITE AT 125CC/HR. NANI HUNG ORDERED. CALL LIGHT IN REACH. WILL CONT TO MONITOR.
--- NOTE | 2020-12-18 07:00 | NUR ---
PT REPORT RECEIVED FROM NIGHT NURSEDIAN
--- NOTE | 2020-12-18 08:00 | NUR ---
PT WAS FOUND RESTING IN BED IN SEMI-FOWLERS POSITION;PT IS A&O X3;VS AND ASSESSMENT WERE COMPLETED;PT HAS NO REPORTS OF PAIN AT THIS TIME;HEART SOUNDS ARE REGULAR IN RATE AND RHYTHM;LUNG SOUNDS ARE COARSE IN THE UPPER LOBES WITH CRACKLES NOTED IN THE LOWER LOBES;RESPIRATIONS ARE EVEN AND UNLABORED ON O2@3L VIA NC;NON-PRODUCTIVE COUGH NOTED;#20G IV IN LFA IS RUNNING NS@125ML/HR;IV SITE IS FREE OF COMPLICATIONS AT THIS TIME;SAFETY PRECAUTIONS IN PLACE;CALL LIGHT WITHIN REACH;BED IN LOWEST POSITION;PT INSTRUCTED TO CALL FOR ASSISTANCE OR CONCERNS;WILL CONTINUE TO MONITOR.
[2020-12-18 08:31] VITALS: BP 101/50
--- NOTE | 2020-12-18 11:07 | NUR ---
PT. PLACED ON HOME CPT VEST. SET FOR 35 MINUTES.
--- NOTE | 2020-12-18 12:00 | NUR ---
PT WAS FOUND SITTING ON THE SIDE OF THE BED EATING LUNCH;PT HAS NO REPORTS OF PAIN AT THIS TIME;O2@3L VIA NC IS IN PLACE;SAFETY PRECAUTIONS IN PLACE;CALL LIGHT WITHIN REACH;BED IN LOWEST POSITION;WILL CONTINUE TO MONITOR.
[2020-12-18 14:55] VITALS: BP 104/49
--- NOTE | 2020-12-18 16:00 | NUR ---
PT WAS FOUND RESTING IN BED;PT HAS NO COMPLAINTS OF PAIN AT THIS TIME;#20G IV IN LFA IS RUNNING NS@125 ML/HR;O2@3L VIA NC IS IN PLACE;SAFETY PRECAUTIONS IN PLACE;CALL LIGHT WITHIN REACH;WILL CONTINUE TO MONITOR.
[2020-12-18 19:05] VITALS: BP 112/57
--- NOTE | 2020-12-18 19:35 | NUR ---
PATIENT RESTING IN BED AT THIS TIME WITH O2 VIA NASAL CANNULA IN PLACE AT 2LPM. O2 SAT IS 96%. ALERT AND ORIENTEDX3. IVF NS PATENT AND INFUSING VIA LEFT FOREARM ITE AT 125CC/HR. SITE REMAINS HEALTHY AT THIS TIME. PATIENT WITH PRODUCTIVE COUGH-WHITE THIN SECREATIONS. PATIENT STATES THAT HE DID JUST USE HIS LIFE VEST PRIOR TO THE LAST NEB TREATMENT. LUNGS SOUNDS REMAIN COURSE. ENCOURAGED USE OF LIFE VEST [id number] UNDERSTANDING. PATIENT DENIES ANY NEEDS AT THIS TIME. SAFETY PRECAUTIONS REINFORCED. CALL LIGHT IN REACH. WILL CONT TO MONITOR.
--- NOTE | 2020-12-18 22:26 | NUR ---
PATIENT RESTING IN BED AT THIS TIME WITH O2 VIA NASAL CANNULA IN PLACE AT 2LPM. PATIENT POSITIONED ON LEFT SIDE. IVF PATIENT AND INFUSING VIA LEFT FOREARM SITE. FORTAZ HUNG ORDERED AND SOLU-MEDROL 60MG IVP GIVEN ORDERED. CALL LIGHT IN REACH. WILL CONT TO MONITOR.
--- NOTE | 2020-12-19 01:00 | NUR ---
PATIENT RESTING IN BED POSITONED ON LEFT SIDE WITH O2 VIA NASAL CANNULA IN PLACE AT 2LPM. IVF NS PATENT AND INFUSING VIA LEFT FOREARM SITE AT 125CC/HR. CALL LIGHT IN REACH. WILL CONT TO MONITOR.
[2020-12-19 04:00] VITALS: BP 96/56
--- NOTE | 2020-12-19 04:00 | NUR ---
PATIENT CONT TO REST ON LEFT SIDE WITH O2 VIA NASAL CANNULA INPLACE AT 2LPM. RESPS ARE EVEN AND UNLABORED. IVF NS PATENT AND INFUSING VIA LEFT FOREARM SITE AT 125CC/HR. CALL LIGHT IN REACH. WILL CONT TO MONITOR.
[2020-12-19 05:11] LABS: HEMATOCRIT 37.9 % (39.0-50.0); HEMOGLOBIN 11.7 g/dl (14.0-18.0); MEAN CELL VOLUME 85.7 fL CALC (80.0-100.0); MEAN CORPUSCULAR HGB 26.5 pG CALC (26.0-32.0); MEAN CORPUSCULAR HGB CONC 30.9 g/dL CAL (32.0-36.0); RED BLOOD COUNT 4.42 mill/uL (4.70-6.10); RED CELL DISTRI WIDTH 13.9 % (11.5-15.5)
[2020-12-19 05:27] LABS: ANION GAP 9 (6-22 (CALC)); BUN 11 mg/dL (9-20); BUN/CREATININE RATIO 21 (12-20 (CALC)); CARBON DIOXIDE 27 mmol/l (22-30); CHLORIDE 102 mmol/l (95-108); CREATININE 0.5 mg/dL (0.7-1.3); GFR > 60 ML/MIN (>=60 (CALC)); GFR FOR AFR.AMER. > 60 ML/MIN (>=60 (CALC)); POTASSIUM 4.1 mmol/l (3.5-5.1); SODIUM 134 mmol/l (137-146)
--- NOTE | 2020-12-19 07:00 | NUR ---
PT REPORT RECEIVED FROM NIGHT NURSEDIAN.
[2020-12-19 07:38] VITALS: BP 104/52
--- NOTE | 2020-12-19 08:00 | NUR ---
PT WAS FOUND RESTING IN BED ON HIS LEFT SIDE;PT IS A&OX3;PT HAS NO REPORTS OF PAIN AT THIS TIME;VS AND ASSESSMENT WERE COMPLETED;HEART SOUNDS ARE REGULAR IN RATE AND RHYTHM;LUNG SOUNDS ARE COARSE THROUGHOUT ALL LOBES;RESPIRATIONS ARE EVEN AND UNLABORED ON O2@2L VIA NC;PRODUCTIVE COUGH NOTED WITH THIN WHITE SPUTUM;#20G IV IN LFA IS RUNNING NS @125ML/HR;IV SITE IS FREE OF COMPLICATIONS AT THIS TIME;SAFETY PRECAUTIONS IN PLACE;CALL LIGHT WITHIN REACH;BED IN LOWEST POSITION;PT ENCOURAGED TO CALL WITH ANY NEEDS OR CONCERNS;WILL CONTINUE TO MONITOR.
--- NOTE | 2020-12-19 08:56 | NUR ---
AND ALISON CEE AT BEDSIDE DISCUSSING POC WITH PT.
--- NOTE | 2020-12-19 09:48 | NUR ---
PT O2@2L VIA NC WAS REMOVED PER PROVIDER TO TEST O2 SATS WITHOUT O2;PT O2 REMAINED STABLE AT 94% W/O O2 IN PLACE.
[2020-12-19] MEDS ORDERED: LEVAQUIN750 M1 PO (11:58)
[2020-12-19] MEDS ORDERED: MUCINEX600 MG PO (11:59)
[2020-12-19] MEDS ORDERED: PREDNISONE10 MG PO (11:59)
--- NOTE | 2020-12-19 12:00 | NUR ---
PT WAS FOUND SITTING UP IN BED EATING LUNCH;PT HAS NO COMPLAINTS OF PAIN AT THIS TIME;SAFETY PRECAUTIONS IN PLACE;CALL LIGHT WITHIN REACH;PT ENCOURAGED TO CALL IF NEEDING ASSISTANCE OR ANY CONCERNS;WILL CONTINUE TO MONITOR.
--- NOTE | 2020-12-19 13:00 | NUR ---
Discharge instructions given. Patient verbalizes understanding of same. Discharged in stable condition via Wheelchair to Home with family. All belongings sent with pt. DISCHARGE PACKET WAS GIVEN TO PT;DISCHARGE INSTRUCTIONS AND MEDICATIONS WERE EXPLAINED;PT EXPRESSED UNDERSTANDING AND HAD NO FURTHER QUESTIONS;SIGNATURE WAS OBTAINED;IV WAS REMOVED WITHOUT COMPLICATIONS AND CATHETER INTACT; PT WAS TRANSPORTED TO [facility] IN STABLE CONDITION VIA ACCOMPANIED BY STAFF;ALL PT BELONGINGS WERE SENT WITH PT;PT WILL BE TRANSPORTED HOME WITH FAMILY.
== END 2020-12-19 13:00 | disposition home or self-care (01) ==
LOC: ED 20:24 → ED-I 21:49 → ED 22:04 → MS2 22:05
PROVIDERS: Family Medicine; Nurse Practitioner; Nurse Practitioner Family; ADMIT Internal Medicine; ATTEND Internal Medicine
DX: E84.0 Cystic fibrosis with pulmonary manifestations (principal); J18.9 Pneumonia, unspecified organism; E87.1 Hypo-osmolality and hyponatremia; J45.909 Unspecified asthma, uncomplicated; Z86.14 Personal history of Methicillin resistant Staphylococcus aureus infection; Z91.19 Patient's noncompliance with other medical treatment and regimen; Z20.822 Contact with and (suspected) exposure to COVID-19
CPT/HCPCS: G0378; J0713; J1650

== ENCOUNTER 2021-01-14 21:28 | Emergency (ER) | payer SELFPAY ==
[~2021-01-14] VITALS: Ht 175.3 cm; Wt 45.5 kg
[~2021-01-14 21:28] MED LIST changes: +MUCINEX600 MG PO
[2021-01-14 22:05] LABS: HEMATOCRIT 38.5 % (39.0-50.0); HEMOGLOBIN 12.4 g/dl (14.0-18.0); IMMATURE GRANULOCYTES 0.7 % (0.0-5.0); MEAN CORPUSCULAR HGB 26.7 pG CALC (26.0-32.0); MEAN CORPUSCULAR HGB CONC 32.2 g/dL CAL (32.0-36.0); NEUT# 9.16 thou/uL (1.82-7.42); RED BLOOD COUNT 4.64 mill/uL (4.70-6.10); RED CELL DISTRI WIDTH 14.3 % (11.5-15.5)
[2021-01-14 22:31] LABS: ALKALINE PHOSPHATASE 74 u/l (38-126); ANION GAP 13 (6-22 (CALC)); BUN 4 mg/dL (9-20); BUN/CREATININE RATIO 10 (12-20 (CALC)); CARBON DIOXIDE 30 mmol/l (22-30); CHLORIDE 90 mmol/l (95-108); CREATININE 0.4 mg/dL (0.7-1.3); GFR > 60 ML/MIN (>=60 (CALC)); GFR FOR AFR.AMER. > 60 ML/MIN (>=60 (CALC)); POTASSIUM 3.8 mmol/l (3.5-5.1); SGOT/AST 23 u/l (17-59); SODIUM 130 mmol/l (137-146); TOTAL PROTEIN 7.2 g/dL (6.3-8.2)
[2021-01-14 22:33] LABS: ALBUMIN 3.5 g/dL (3.2-5.0)
[2021-01-14] MEDS ORDERED: PREDNISONE10 MG PO (22:41)
[2021-01-14 23:52] LABS: URINE BILIRUBIN - DIPSTICK NEGATIVE (NEGATIVE); URINE BLOOD DIPSTICK NEGATIVE (NEGATIVE); URINE COLOR YELLOW; URINE GLUCOSE - DIPSTICK NEGATIVE (NEGATIVE); URINE KETONE NEGATIVE (NEGATIVE); URINE LEUK ESTERASE NEGATIVE (NEGATIVE); URINE PROTEIN - DIPSTICK TRACE mg/dL (NEG-TRACE)
[2021-01-14 23:53] LABS: URINE NITRITE - DIPSTICK NEGATIVE (Negative)
[2021-01-14 23:54] VITALS: BP 107/57
== END 2021-01-14 23:58 | disposition short-term general hospital (02) | DRG 177 ==
LOC: ED 21:28
PROVIDERS: Family Medicine
DX: E84.0 Cystic fibrosis with pulmonary manifestations (principal); J18.9 Pneumonia, unspecified organism; J45.909 Unspecified asthma, uncomplicated; F17.200 Nicotine dependence, unspecified, uncomplicated; T50.916A Underdosing of multiple unspecified drugs, medicaments and biological substances, initial encounter; B96.5 Pseudomonas (aeruginosa) (mallei) (pseudomallei) as the cause of diseases classified elsewhere; Z91.120 Patient's intentional underdosing of medication regimen due to financial hardship; Z20.822 Contact with and (suspected) exposure to COVID-19
CPT/HCPCS: J0713

== ENCOUNTER 2021-03-08 11:50 | Emergency (ER) | payer MEDICAID ==
[~2021-03-08] VITALS: Ht 175.3 cm; Wt 55.0 kg
[2021-03-08 13:18] LABS: HEMATOCRIT 37.6 % (39.0-50.0); HEMOGLOBIN 12.3 g/dl (14.0-18.0); IMMATURE GRANULOCYTES 0.2 % (0.0-5.0); MEAN CELL VOLUME 84.1 fL CALC (80.0-100.0); MEAN CORPUSCULAR HGB 27.5 pG CALC (26.0-32.0); MEAN CORPUSCULAR HGB CONC 32.7 g/dL CAL (32.0-36.0); NEUT# 12.23 thou/uL (1.82-7.42); RED BLOOD COUNT 4.47 mill/uL (4.70-6.10); RED CELL DISTRI WIDTH 15.8 % (11.5-15.5)
[2021-03-08 13:24] LABS: ALBUMIN 3.6 g/dL (3.2-5.0); ALKALINE PHOSPHATASE 82 u/l (38-126); BILIRUBIN, TOTAL 1.4 mg/dL (0.0-1.4); BUN 7 mg/dL (9-20); BUN/CREATININE RATIO 16 (12-20 (CALC)); CHLORIDE 100 mmol/l (95-108); CREATININE 0.4 mg/dL (0.7-1.3); GFR > 60 ML/MIN (>=60 (CALC)); GFR FOR AFR.AMER. > 60 ML/MIN (>=60 (CALC)); POTASSIUM 4.4 mmol/l (3.5-5.1); SGOT/AST 14 u/l (17-59); SODIUM 133 mmol/l (137-146); TOTAL PROTEIN 7.3 g/dL (6.3-8.2)
[2021-03-08 13:27] LABS: ANION GAP 14 (6-22 (CALC)); CARBON DIOXIDE 23 mmol/l (22-30)
[2021-03-08] MEDS ORDERED: Levaquin PO (16:15)
[2021-03-08 17:03] VITALS: BP 99/57
== END 2021-03-08 17:03 | disposition home or self-care (01) ==
LOC: ED 11:50
PROVIDERS: Family Medicine
DX: J12.9 Viral pneumonia, unspecified (principal); E84.0 Cystic fibrosis with pulmonary manifestations; J45.909 Unspecified asthma, uncomplicated; Z20.822 Contact with and (suspected) exposure to COVID-19

== ENCOUNTER 2021-03-20 14:25 | Emergency (ER) | payer MEDICAID ==
[~2021-03-20 14:25] MED LIST changes: +Levaquin PO
[2021-03-20 15:57] LABS: HEMATOCRIT 39.9 % (39.0-50.0); HEMOGLOBIN 12.6 g/dl (14.0-18.0); IMMATURE GRANULOCYTES 0.4 % (0.0-5.0); MEAN CELL VOLUME 85.1 fL CALC (80.0-100.0); MEAN CORPUSCULAR HGB 26.9 pG CALC (26.0-32.0); MEAN CORPUSCULAR HGB CONC 31.6 g/dL CAL (32.0-36.0); NEUT# 8.89 thou/uL (1.82-7.42); RED BLOOD COUNT 4.69 mill/uL (4.70-6.10); RED CELL DISTRI WIDTH 16.1 % (11.5-15.5)
[2021-03-20 16:12] LABS: URINE BILIRUBIN - DIPSTICK NEGATIVE (NEGATIVE); URINE BLOOD DIPSTICK NEGATIVE (NEGATIVE); URINE COLOR YELLOW; URINE GLUCOSE - DIPSTICK NEGATIVE (NEGATIVE); URINE KETONE NEGATIVE (NEGATIVE); URINE LEUK ESTERASE NEGATIVE (NEGATIVE); URINE PROTEIN - DIPSTICK NEGATIVE (NEG-TRACE); URINE UROBILINOGEN - DIPSTICK 0.2 E.U./dL (0.2)
[2021-03-20 16:14] LABS: ALBUMIN 4.2 g/dL (3.2-5.0); ALKALINE PHOSPHATASE 91 u/l (38-126); AMYLASE 89 u/l (30-110); BUN 10 mg/dL (9-20); BUN/CREATININE RATIO 22 (12-20 (CALC)); CHLORIDE 98 mmol/l (95-108); CREATININE 0.4 mg/dL (0.7-1.3); GFR > 60 ML/MIN (>=60 (CALC)); GFR FOR AFR.AMER. > 60 ML/MIN (>=60 (CALC)); LIPASE 426 u/l (23-300); SGOT/AST 20 u/l (17-59); SODIUM 135 mmol/l (137-146)
[2021-03-20 16:14] LABS: URINE NITRITE - DIPSTICK NEGATIVE (Negative)
[2021-03-20 16:15] LABS: ANION GAP 13 (6-22 (CALC)); BILIRUBIN, TOTAL 0.7 mg/dL (0.0-1.4); CARBON DIOXIDE 28 mmol/l (22-30); TOTAL PROTEIN 8.8 g/dL (6.3-8.2)
[2021-03-20 16:39] VITALS: BP 110/65
== END 2021-03-20 16:39 | disposition home or self-care (01) ==
LOC: ED 14:25
DX: R10.84 Generalized abdominal pain (principal); E84.9 Cystic fibrosis, unspecified; J45.909 Unspecified asthma, uncomplicated; Z86.14 Personal history of Methicillin resistant Staphylococcus aureus infection; Z20.822 Contact with and (suspected) exposure to COVID-19

== ENCOUNTER 2021-03-22 13:08 | Emergency (ER) | payer MEDICAID ==
[2021-03-22 15:11] LABS: HEMOGLOBIN 12.5 g/dl (14.0-18.0); IMMATURE GRANULOCYTES 0.1 % (0.0-5.0); MEAN CORPUSCULAR HGB 27.2 pG CALC (26.0-32.0); MEAN CORPUSCULAR HGB CONC 32.1 g/dL CAL (32.0-36.0); NEUT# 9.46 thou/uL (1.82-7.42); RED BLOOD COUNT 4.59 mill/uL (4.70-6.10); RED CELL DISTRI WIDTH 16.1 % (11.5-15.5)
[2021-03-22 15:20] LABS: ALBUMIN 3.9 g/dL (3.2-5.0); ALKALINE PHOSPHATASE 72 u/l (38-126); ANION GAP 13 (6-22 (CALC)); BILIRUBIN, TOTAL 0.6 mg/dL (0.0-1.4); BUN 5 mg/dL (9-20); BUN/CREATININE RATIO 11 (12-20 (CALC)); CARBON DIOXIDE 26 mmol/l (22-30); CHLORIDE 99 mmol/l (95-108); CREATININE 0.4 mg/dL (0.7-1.3); GFR > 60 ML/MIN (>=60 (CALC)); GFR FOR AFR.AMER. > 60 ML/MIN (>=60 (CALC)); LIPASE 220 u/l (23-300); POTASSIUM 3.9 mmol/l (3.5-5.1); SODIUM 134 mmol/l (137-146)
[2021-03-22 15:21] LABS: SGOT/AST 53 u/l (17-59)
[2021-03-22] MEDS ORDERED: ZOFRAN4 M1 PO (17:27)
[2021-03-22 17:58] VITALS: BP 121/65
== END 2021-03-22 17:58 | disposition home or self-care (01) ==
LOC: ED 13:08
PROVIDERS: Family Medicine
DX: R10.84 Generalized abdominal pain (principal); R52 Pain, unspecified; E84.9 Cystic fibrosis, unspecified; J45.909 Unspecified asthma, uncomplicated; Z20.822 Contact with and (suspected) exposure to COVID-19

== ENCOUNTER 2021-04-01 12:37 | Emergency (ER) | payer MEDICAID ==
[~2021-04-01] VITALS: Ht 175.3 cm; Wt 54.0 kg
[~2021-04-01 12:37] MED LIST changes: +ZOFRAN4 M1 PO
[2021-04-01] MEDS ORDERED: ZOFRAN4 MG/TAB PO (14:54)
[2021-04-01 15:28] VITALS: BP 98/52
== END 2021-04-01 15:29 | disposition home or self-care (01) ==
LOC: ED 12:37
DX: B34.9 Viral infection, unspecified (principal); E84.9 Cystic fibrosis, unspecified; J45.909 Unspecified asthma, uncomplicated; Z20.822 Contact with and (suspected) exposure to COVID-19

== ENCOUNTER 2021-04-04 21:46 | Emergency (ER) | payer MEDICAID ==
[~2021-04-04] VITALS: Ht 175.3 cm; Wt 55.0 kg
[~2021-04-04 21:46] MED LIST changes: +ZOFRAN4 MG/TAB PO
[2021-04-04 23:07] LABS: HEMATOCRIT 42.4 % (39.0-50.0); HEMOGLOBIN 13.4 g/dl (14.0-18.0); IMMATURE GRANULOCYTES 0.6 % (0.0-5.0); MEAN CELL VOLUME 84.6 fL CALC (80.0-100.0); MEAN CORPUSCULAR HGB 26.7 pG CALC (26.0-32.0); MEAN CORPUSCULAR HGB CONC 31.6 g/dL CAL (32.0-36.0); NEUT# 10.67 thou/uL (1.82-7.42); RED BLOOD COUNT 5.01 mill/uL (4.70-6.10); RED CELL DISTRI WIDTH 15.9 % (11.5-15.5)
[2021-04-04 23:37] LABS: ALBUMIN 4.3 g/dL (3.2-5.0); ALKALINE PHOSPHATASE 106 u/l (38-126); ANION GAP 18 (6-22 (CALC)); BUN 7 mg/dL (9-20); BUN/CREATININE RATIO 17 (12-20 (CALC)); CARBON DIOXIDE 24 mmol/l (22-30); CHLORIDE 96 mmol/l (95-108); CREATININE 0.4 mg/dL (0.7-1.3); ETHYL ALCOHOL 0 mg/dl (0-30); GFR > 60 ML/MIN (>=60 (CALC)); GFR FOR AFR.AMER. > 60 ML/MIN (>=60 (CALC)); POTASSIUM 4.1 mmol/l (3.5-5.1); SGOT/AST 23 u/l (17-59); SODIUM 135 mmol/l (137-146); TOTAL PROTEIN 8.6 g/dL (6.3-8.2)
[2021-04-05 00:13] LABS: URINE BILIRUBIN - DIPSTICK NEGATIVE (NEGATIVE); URINE BLOOD DIPSTICK NEGATIVE (NEGATIVE); URINE COLOR YELLOW; URINE GLUCOSE - DIPSTICK NEGATIVE (NEGATIVE); URINE KETONE >=80 mg/dL (NEGATIVE); URINE LEUK ESTERASE NEGATIVE (NEGATIVE); URINE NITRITE - DIPSTICK NEGATIVE (Negative); URINE PROTEIN - DIPSTICK NEGATIVE (NEG-TRACE); URINE UROBILINOGEN - DIPSTICK 0.2 E.U./dL (0.2)
[2021-04-05] MEDS ORDERED: PROMETHAZINE HY25 M1 PO (00:54)
[2021-04-05 01:20] VITALS: BP 122/65
== END 2021-04-05 01:20 | disposition home or self-care (01) ==
LOC: ED 21:46
PROVIDERS: Family Medicine
DX: F15.10 Other stimulant abuse, uncomplicated (principal); E84.9 Cystic fibrosis, unspecified; J45.909 Unspecified asthma, uncomplicated

== ENCOUNTER 2021-04-05 12:50 | Emergency (ER) | payer MEDICAID ==
[~2021-04-05] VITALS: Ht 175.3 cm; Wt 55.0 kg
[~2021-04-05 12:50] MED LIST changes: +PROMETHAZINE HY25 M1 PO
[2021-04-05 15:48] VITALS: BP 115/75
== END 2021-04-05 16:22 | disposition home or self-care (01) ==
LOC: ED 12:50
DX: F41.9 Anxiety disorder, unspecified (principal); F32.9 Major depressive disorder, single episode, unspecified; E84.9 Cystic fibrosis, unspecified; J45.909 Unspecified asthma, uncomplicated; F17.210 Nicotine dependence, cigarettes, uncomplicated

== ENCOUNTER 2021-06-27 11:48 | Emergency (ER) | payer MEDICAID ==
[~2021-06-27] VITALS: Ht 175.3 cm; Wt 54.5 kg
[2021-06-27 12:42] LABS: HEMATOCRIT 37.1 % (39.0-50.0); HEMOGLOBIN 12.2 g/dl (14.0-18.0); IMMATURE GRANULOCYTES 0.6 % (0.0-5.0); MEAN CELL VOLUME 83.2 fL CALC (80.0-100.0); MEAN CORPUSCULAR HGB 27.4 pG CALC (26.0-32.0); MEAN CORPUSCULAR HGB CONC 32.9 g/dL CAL (32.0-36.0); NEUT# 6.79 thou/uL (1.82-7.42); RED BLOOD COUNT 4.46 mill/uL (4.70-6.10); RED CELL DISTRI WIDTH 15.6 % (11.5-15.5)
[2021-06-27 12:55] LABS: ALBUMIN 4.2 g/dL (3.2-5.0); ALKALINE PHOSPHATASE 89 u/l (38-126); ANION GAP 13 (6-22 (CALC)); BILIRUBIN, TOTAL 0.8 mg/dL (0.0-1.4); BUN 8 mg/dL (9-20); BUN/CREATININE RATIO 18 (12-20 (CALC)); CARBON DIOXIDE 28 mmol/l (22-30); CHLORIDE 101 mmol/l (95-108); CREATININE 0.5 mg/dL (0.7-1.3); GFR > 60 ML/MIN (>=60 (CALC)); GFR FOR AFR.AMER. > 60 ML/MIN (>=60 (CALC)); SGOT/AST 20 u/l (17-59); SODIUM 137 mmol/l (137-146); TOTAL PROTEIN 7.7 g/dL (6.3-8.2)
[2021-06-27 13:06] LABS: MYOGLOBIN 12 ng/mL (0 - 121)
[2021-06-27 14:28] LABS: URINE BILIRUBIN - DIPSTICK NEGATIVE (NEGATIVE); URINE BLOOD DIPSTICK NEGATIVE (NEGATIVE); URINE COLOR YELLOW; URINE GLUCOSE - DIPSTICK NEGATIVE (NEGATIVE); URINE KETONE TRACE mg/dL (NEGATIVE); URINE LEUK ESTERASE NEGATIVE (NEGATIVE); URINE PROTEIN - DIPSTICK TRACE mg/dL (NEG-TRACE); URINE SPECIFIC GRAVITY 1.025
[2021-06-27 14:29] LABS: URINE NITRITE - DIPSTICK NEGATIVE (Negative)
[2021-06-27 15:00] VITALS: BP 110/59
== END 2021-06-27 15:05 | disposition home or self-care (01) ==
LOC: ED 11:48
PROVIDERS: Emergency Medicine
DX: R56.9 Unspecified convulsions (principal); E84.0 Cystic fibrosis with pulmonary manifestations; J45.909 Unspecified asthma, uncomplicated; F17.200 Nicotine dependence, unspecified, uncomplicated; Z86.73 Personal history of transient ischemic attack (TIA), and cerebral infarction without residual deficits; Z20.822 Contact with and (suspected) exposure to COVID-19

== ENCOUNTER 2021-07-22 19:45 | Emergency (ER) | payer MEDICAID ==
[~2021-07-22] VITALS: Ht 175.3 cm; Wt 54.0 kg
[2021-07-22 20:56] LABS: HEMATOCRIT 37.7 % (39.0-50.0); HEMOGLOBIN 12.5 g/dl (14.0-18.0); IMMATURE GRANULOCYTES 0.2 % (0.0-5.0); MEAN CELL VOLUME 82.7 fL CALC (80.0-100.0); MEAN CORPUSCULAR HGB 27.4 pG CALC (26.0-32.0); MEAN CORPUSCULAR HGB CONC 33.2 g/dL CAL (32.0-36.0); NEUT# 6.26 thou/uL (1.82-7.42); RED BLOOD COUNT 4.56 mill/uL (4.70-6.10); RED CELL DISTRI WIDTH 14.1 % (11.5-15.5)
[2021-07-22 21:05] LABS: ALBUMIN 4.1 g/dL (3.2-5.0); ALKALINE PHOSPHATASE 88 u/l (38-126); ANION GAP 13 (6-22 (CALC)); BILIRUBIN, TOTAL 0.8 mg/dL (0.0-1.4); BUN 10 mg/dL (9-20); BUN/CREATININE RATIO 19 (12-20 (CALC)); CARBON DIOXIDE 27 mmol/l (22-30); CHLORIDE 100 mmol/l (95-108); CREATININE 0.5 mg/dL (0.7-1.3); GFR > 60 ML/MIN (>=60 (CALC)); GFR FOR AFR.AMER. > 60 ML/MIN (>=60 (CALC)); SGOT/AST 19 u/l (17-59); SODIUM 136 mmol/l (137-146); TOTAL PROTEIN 8.3 g/dL (6.3-8.2)
[2021-07-22 22:15] LABS: URINE BILIRUBIN - DIPSTICK NEGATIVE (NEGATIVE); URINE BLOOD DIPSTICK NEGATIVE (NEGATIVE); URINE COLOR YELLOW; URINE GLUCOSE - DIPSTICK NEGATIVE (NEGATIVE); URINE KETONE NEGATIVE (NEGATIVE); URINE LEUK ESTERASE NEGATIVE (NEGATIVE); URINE PROTEIN - DIPSTICK NEGATIVE (NEG-TRACE)
[2021-07-22 22:16] LABS: URINE NITRITE - DIPSTICK NEGATIVE (Negative)
[2021-07-22] MEDS ORDERED: ZITHROMAX250 MG PO (22:29)
[2021-07-22] MEDS ORDERED: MEDDOSEPAK PO (22:29)
[2021-07-22 22:40] VITALS: BP 110/55
== END 2021-07-22 23:00 | disposition home or self-care (01) ==
LOC: ED 19:45
PROVIDERS: Emergency Medicine
DX: E84.0 Cystic fibrosis with pulmonary manifestations (principal); J18.9 Pneumonia, unspecified organism; J45.909 Unspecified asthma, uncomplicated; F17.200 Nicotine dependence, unspecified, uncomplicated; Z86.73 Personal history of transient ischemic attack (TIA), and cerebral infarction without residual deficits; Z87.01 Personal history of pneumonia (recurrent); Z20.822 Contact with and (suspected) exposure to COVID-19

== ENCOUNTER 2021-07-26 08:46 | Emergency (ER) | payer MEDICAID ==
[~2021-07-26] VITALS: Ht 175.3 cm; Wt 54.5 kg
[2021-07-26] MEDS ORDERED: SYMDEKO PO (08:54)
[2021-07-26] MEDS ORDERED: KITABIS PA300 MG/5 M (08:55)
[2021-07-26] MEDS ORDERED: PULMOZYME1 MG/ML IN (08:55)
[2021-07-26 10:09] LABS: HEMATOCRIT 41.9 % (39.0-50.0); HEMOGLOBIN 13.5 g/dl (14.0-18.0); IMMATURE GRANULOCYTES 0.9 % (0.0-5.0); MEAN CELL VOLUME 84.3 fL CALC (80.0-100.0); MEAN CORPUSCULAR HGB 27.2 pG CALC (26.0-32.0); MEAN CORPUSCULAR HGB CONC 32.2 g/dL CAL (32.0-36.0); NEUT# 9.93 thou/uL (1.82-7.42); RED BLOOD COUNT 4.97 mill/uL (4.70-6.10)
[2021-07-26 10:23] LABS: ALBUMIN 4.3 g/dL (3.2-5.0); ALKALINE PHOSPHATASE 103 u/l (38-126); ANION GAP 16 (6-22 (CALC)); BUN 10 mg/dL (9-20); BUN/CREATININE RATIO 19 (12-20 (CALC)); CARBON DIOXIDE 27 mmol/l (22-30); CHLORIDE 99 mmol/l (95-108); CREATININE 0.6 mg/dL (0.7-1.3); GFR > 60 ML/MIN (>=60 (CALC)); GFR FOR AFR.AMER. > 60 ML/MIN (>=60 (CALC)); POTASSIUM 3.3 mmol/l (3.5-5.1); SGOT/AST 33 u/l (17-59); SODIUM 139 mmol/l (137-146); TOTAL PROTEIN 8.7 g/dL (6.3-8.2)
[2021-07-26 10:24] LABS: BILIRUBIN, TOTAL 0.4 mg/dL (0.0-1.4)
[2021-07-26 11:12] LABS: URINE BILIRUBIN - DIPSTICK NEGATIVE (NEGATIVE); URINE BLOOD DIPSTICK NEGATIVE (NEGATIVE); URINE COLOR YELLOW; URINE GLUCOSE - DIPSTICK NEGATIVE (NEGATIVE); URINE KETONE NEGATIVE (NEGATIVE); URINE LEUK ESTERASE NEGATIVE (NEGATIVE); URINE PROTEIN - DIPSTICK NEGATIVE (NEG-TRACE); URINE UROBILINOGEN - DIPSTICK 0.2 E.U./dL (0.2)
[2021-07-26 11:16] LABS: URINE NITRITE - DIPSTICK NEGATIVE (Negative)
[2021-07-26 11:18] LABS: URINE RBC 0-2 RBC/hpf (0-5)
[2021-07-26 11:19] LABS: URINE AMORPH SEDIMENT MANY hpf (NONE-FER); URINE EPITHELIAL CELLS FEW EPI/hpf (0-FEW); URINE WBC 0-2 WBC/hpf (0-5)
[2021-07-26 12:15] VITALS: BP 114/59
--- NOTE | 2021-07-28 07:28 | NUR ---
PRELIM BLOOD CX SHOWS GRAM POSITIVE COCCI IN 1/4 VIALS. PT WAS TRANSFERRED TO [facility]. REPORTED RESULTS TO KELLY @ [facility] AND FAXED TO [phone]. WILL F/U WITH FINALS
--- NOTE | 2021-07-29 07:57 | NUR ---
FINAL BLOOD CX RESULTS REPORTED TO CAR @ [facility] AND FAXED TO [phone]
== END 2021-07-26 14:40 | disposition short-term general hospital (02) ==
LOC: ED 08:46
PROVIDERS: Emergency Medicine
DX: E84.0 Cystic fibrosis with pulmonary manifestations (principal); J18.9 Pneumonia, unspecified organism; Z87.01 Personal history of pneumonia (recurrent); Z86.14 Personal history of Methicillin resistant Staphylococcus aureus infection; Z86.73 Personal history of transient ischemic attack (TIA), and cerebral infarction without residual deficits
CPT/HCPCS: S0073

== ENCOUNTER 2021-08-16 09:55 | Emergency (ER) | payer MEDICAID ==
[~2021-08-16] VITALS: Ht 175.3 cm; Wt 55.0 kg
[~2021-08-16 09:55] MED LIST changes: +KITABIS PA300 MG/5 M; +SYMDEKO PO
[2021-08-16 10:29] LABS: HEMATOCRIT 39.8 % (39.0-50.0); HEMOGLOBIN 12.7 g/dl (14.0-18.0); IMMATURE GRANULOCYTES 0.8 % (0.0-5.0); MEAN CELL VOLUME 85.8 fL CALC (80.0-100.0); MEAN CORPUSCULAR HGB 27.4 pG CALC (26.0-32.0); MEAN CORPUSCULAR HGB CONC 31.9 g/dL CAL (32.0-36.0); NEUT# 6.39 thou/uL (1.82-7.42); RED BLOOD COUNT 4.64 mill/uL (4.70-6.10); RED CELL DISTRI WIDTH 14.7 % (11.5-15.5)
[2021-08-16 10:55] LABS: ALBUMIN 4.1 g/dL (3.2-5.0); ALKALINE PHOSPHATASE 85 u/l (38-126); BILIRUBIN, TOTAL 0.5 mg/dL (0.0-1.4); BUN 5 mg/dL (9-20); BUN/CREATININE RATIO 11 (12-20 (CALC)); CARBON DIOXIDE 30 mmol/l (22-30); CHLORIDE 104 mmol/l (95-108); CREATININE 0.5 mg/dL (0.7-1.3); GFR > 60 ML/MIN (>=60 (CALC)); GFR FOR AFR.AMER. > 60 ML/MIN (>=60 (CALC)); SGOT/AST 23 u/l (17-59); SODIUM 141 mmol/l (137-146); TOTAL PROTEIN 8.3 g/dL (6.3-8.2)
[2021-08-16 10:58] LABS: ANION GAP 11 (6-22 (CALC)); POTASSIUM 4.3 mmol/l (3.5-5.1)
[2021-08-16 12:47] VITALS: BP 109/51
== END 2021-08-16 13:02 | disposition short-term general hospital (02) ==
LOC: ED 09:55
PROVIDERS: Family Medicine
DX: E84.0 Cystic fibrosis with pulmonary manifestations (principal); J18.9 Pneumonia, unspecified organism; J45.909 Unspecified asthma, uncomplicated; Z87.01 Personal history of pneumonia (recurrent); Z88.1 Allergy status to other antibiotic agents; Z88.0 Allergy status to penicillin; Z86.73 Personal history of transient ischemic attack (TIA), and cerebral infarction without residual deficits; Z20.822 Contact with and (suspected) exposure to COVID-19
CPT/HCPCS: J0692; J2020

== ENCOUNTER 2021-09-21 18:01 | Emergency (ER) | payer MEDICAID ==
[~2021-09-21] VITALS: Ht 175.3 cm; Wt 55.0 kg
[2021-09-21 18:42] LABS: HEMATOCRIT 41.1 % (39.0-50.0); HEMOGLOBIN 13.1 g/dl (14.0-18.0); IMMATURE GRANULOCYTES 0.2 % (0.0-5.0); MEAN CELL VOLUME 82.5 fL CALC (80.0-100.0); MEAN CORPUSCULAR HGB 26.3 pG CALC (26.0-32.0); MEAN CORPUSCULAR HGB CONC 31.9 g/dL CAL (32.0-36.0); NEUT# 7.98 thou/uL (1.82-7.42); RED BLOOD COUNT 4.98 mill/uL (4.70-6.10); RED CELL DISTRI WIDTH 13.6 % (11.5-15.5)
[2021-09-21 18:47] LABS: ALBUMIN 4.2 g/dL (3.2-5.0); ALKALINE PHOSPHATASE 86 u/l (38-126); ANION GAP 19 (6-22 (CALC)); BUN 6 mg/dL (9-20); BUN/CREATININE RATIO 10 (12-20 (CALC)); CARBON DIOXIDE 25 mmol/l (22-30); CHLORIDE 95 mmol/l (95-108); CREATININE 0.6 mg/dL (0.7-1.3); GFR > 60 ML/MIN (>=60 (CALC)); GFR FOR AFR.AMER. > 60 ML/MIN (>=60 (CALC)); POTASSIUM 3.7 mmol/l (3.5-5.1); SGOT/AST 26 u/l (17-59); SODIUM 135 mmol/l (137-146); TOTAL PROTEIN 9.1 g/dL (6.3-8.2)
[2021-09-21] MEDS ORDERED: PREDNISONE50 MG PO (19:37)
[2021-09-21] MEDS ORDERED: LEVAQUIN750 M1 PO (19:37)
[2021-09-21 20:08] VITALS: BP 124/66
== END 2021-09-21 20:42 | disposition home or self-care (01) ==
LOC: ED 18:01
PROVIDERS: Family Medicine
DX: J18.9 Pneumonia, unspecified organism (principal); E84.0 Cystic fibrosis with pulmonary manifestations; J45.909 Unspecified asthma, uncomplicated; Z86.73 Personal history of transient ischemic attack (TIA), and cerebral infarction without residual deficits; Z87.01 Personal history of pneumonia (recurrent); Z20.822 Contact with and (suspected) exposure to COVID-19

== ENCOUNTER 2021-11-03 01:11 | Emergency (ER) | payer MEDICAID ==
[~2021-11-03] VITALS: Ht 175.3 cm; Wt 54.0 kg
[2021-11-03 01:32] LABS: HEMATOCRIT 35.9 % (39.0-50.0); HEMOGLOBIN 11.2 g/dl (14.0-18.0); IMMATURE GRANULOCYTES 0.4 % (0.0-5.0); MEAN CELL VOLUME 85.3 fL CALC (80.0-100.0); MEAN CORPUSCULAR HGB 26.6 pG CALC (26.0-32.0); MEAN CORPUSCULAR HGB CONC 31.2 g/dL CAL (32.0-36.0); NEUT# 4.98 thou/uL (1.82-7.42); RED BLOOD COUNT 4.21 mill/uL (4.70-6.10); RED CELL DISTRI WIDTH 17.1 % (11.5-15.5)
[2021-11-03 01:45] LABS: URINE BILIRUBIN - DIPSTICK NEGATIVE (NEGATIVE); URINE BLOOD DIPSTICK NEGATIVE (NEGATIVE); URINE COLOR YELLOW; URINE GLUCOSE - DIPSTICK NEGATIVE (NEGATIVE); URINE KETONE NEGATIVE (NEGATIVE); URINE LEUK ESTERASE NEGATIVE (NEGATIVE); URINE PROTEIN - DIPSTICK NEGATIVE (NEG-TRACE); URINE UROBILINOGEN - DIPSTICK 0.2 E.U./dL (0.2)
[2021-11-03 01:46] LABS: URINE NITRITE - DIPSTICK NEGATIVE (Negative)
[2021-11-03 02:00] LABS: ALBUMIN 3.6 g/dL (3.2-5.0); ALKALINE PHOSPHATASE 94 u/l (38-126); ANION GAP 11 (6-22 (CALC)); BUN 9 mg/dL (9-20); BUN/CREATININE RATIO 16 (12-20 (CALC)); CARBON DIOXIDE 29 mmol/l (22-30); CHLORIDE 102 mmol/l (95-108); CREATININE 0.6 mg/dL (0.7-1.3); ETHYL ALCOHOL 0 mg/dl (0-30); GFR > 60 ML/MIN (>=60 (CALC)); GFR FOR AFR.AMER. > 60 ML/MIN (>=60 (CALC)); POTASSIUM 3.9 mmol/l (3.5-5.1); SGOT/AST 17 u/l (17-59); SODIUM 138 mmol/l (137-146)
[2021-11-03 02:01] LABS: BILIRUBIN, TOTAL 0.4 mg/dL (0.0-1.4); TOTAL PROTEIN 6.9 g/dL (6.3-8.2)
[2021-11-03 02:36] VITALS: BP 124/90
== END 2021-11-03 02:41 | disposition home or self-care (01) ==
LOC: ED 01:11
PROVIDERS: Family Medicine
DX: F41.8 Other specified anxiety disorders (principal); E84.9 Cystic fibrosis, unspecified; J45.909 Unspecified asthma, uncomplicated; Z86.73 Personal history of transient ischemic attack (TIA), and cerebral infarction without residual deficits

== ENCOUNTER 2021-11-12 03:46 | Emergency (ER) | payer MEDICAID ==
[~2021-11-12] VITALS: Ht 175.3 cm; Wt 55.0 kg
[2021-11-12] VITALS (7 sets, daily range): BP systolic 108–117; BP diastolic 66–73
[2021-11-12 04:25] LABS: HEMATOCRIT 39.6 % (39.0-50.0); HEMOGLOBIN 12.5 g/dl (14.0-18.0); IMMATURE GRANULOCYTES 0.3 % (0.0-5.0); MEAN CELL VOLUME 84.8 fL CALC (80.0-100.0); MEAN CORPUSCULAR HGB 26.8 pG CALC (26.0-32.0); MEAN CORPUSCULAR HGB CONC 31.6 g/dL CAL (32.0-36.0); NEUT# 3.5 thou/uL (1.82-7.42); RED BLOOD COUNT 4.67 mill/uL (4.70-6.10); RED CELL DISTRI WIDTH 16.3 % (11.5-15.5)
[2021-11-12 04:39] LABS: ALBUMIN 4.3 g/dL (3.2-5.0); ALKALINE PHOSPHATASE 84 u/l (38-126); BUN 10 mg/dL (9-20); BUN/CREATININE RATIO 21 (12-20 (CALC)); CHLORIDE 104 mmol/l (95-108); CREATININE 0.5 mg/dL (0.7-1.3); GFR > 60 ML/MIN (>=60 (CALC)); GFR FOR AFR.AMER. > 60 ML/MIN (>=60 (CALC)); POTASSIUM 4.2 mmol/l (3.5-5.1); SGOT/AST 20 u/l (17-59); SODIUM 137 mmol/l (137-146); TOTAL PROTEIN 8.2 g/dL (6.3-8.2)
[2021-11-12 04:47] LABS: ANION GAP 14 (6-22 (CALC)); BILIRUBIN, TOTAL 0.9 mg/dL (0.0-1.4); CARBON DIOXIDE 23 mmol/l (22-30)
[2021-11-12] MEDS ORDERED: ZPAK PO (05:15)
[2021-11-12] MEDS ORDERED: ZITHROMAX250 MG PO (05:15)
== END 2021-11-12 06:20 | disposition home or self-care (01) ==
LOC: ED 03:46
PROVIDERS: Emergency Medicine
DX: E84.0 Cystic fibrosis with pulmonary manifestations (principal); Z87.01 Personal history of pneumonia (recurrent); Z86.73 Personal history of transient ischemic attack (TIA), and cerebral infarction without residual deficits; Z20.822 Contact with and (suspected) exposure to COVID-19

== ENCOUNTER 2022-07-10 13:52 | Emergency (ER) | payer OTHER ==
[~2022-07-10] VITALS: Ht 175.3 cm; Wt 54.5 kg
[2022-07-10 14:28] LABS: HEMATOCRIT 35.9 % (39.0-50.0); IMMATURE GRANULOCYTES 0.2 % (0.0-5.0); MEAN CORPUSCULAR HGB 27.4 pG CALC (26.0-32.0); MEAN CORPUSCULAR HGB CONC 33.4 g/dL CAL (32.0-36.0); NEUT# 26.55 thou/uL (1.82-7.42); RED BLOOD COUNT 4.38 mill/uL (4.70-6.10); RED CELL DISTRI WIDTH 13.3 % (11.5-15.5)
[2022-07-10 14:42] LABS: ALBUMIN 4.1 g/dL (3.2-5.0); ALKALINE PHOSPHATASE 81 u/l (38-126); BUN 8 mg/dL (9-20); BUN/CREATININE RATIO 16 (12-20 (CALC)); CHLORIDE 96 mmol/l (95-108); CREATININE 0.5 mg/dL (0.7-1.3); GFR FOR AFR.AMER. > 60 ML/MIN (>=60 (CALC)); GFR OTHER RACES > 60 ML/MIN (>=60 (CALC)); POTASSIUM 3.6 mmol/l (3.5-5.1); SGOT/AST 25 u/l (17-59); SODIUM 137 mmol/l (137-146); TOTAL PROTEIN 7.2 g/dL (6.3-8.2)
[2022-07-10 14:44] LABS: ANION GAP 15 (6-22 (CALC)); BILIRUBIN, TOTAL 0.5 mg/dL (0.0-1.4); CARBON DIOXIDE 30 mmol/l (22-30)
[2022-07-10] MEDS ORDERED: PREDNISONE20 MG PO (15:46)
[2022-07-10] MEDS ORDERED: TESSALON PERLE100 MG (15:47)
[2022-07-10] MEDS ORDERED: MUCINEX600 MG PO (15:48)
[2022-07-10] MEDS ORDERED: COLACE100 MG PO (15:48)
[2022-07-10] MEDS ORDERED: MULTIVITAMI9 PO (15:51)
[2022-07-10] MEDS ORDERED: [UNRECOGNIZED DRUG - OTHER] (15:52)
[2022-07-10] MEDS ORDERED: VITAMIN A (15:52)
[2022-07-10] MEDS ORDERED: CALCIUM 500/VITAMIN PO (15:53)
[2022-07-10] MEDS ORDERED: PROTONIX40 M2 PO (15:54)
[2022-07-10] MEDS ORDERED: TOBI300 MG/5 M IN (15:54)
[2022-07-10] MEDS ORDERED: ADVAIR DISK1 INH (15:55)
[2022-07-10] MEDS ORDERED: ALBUTEROL SUL0.083 % IN (16:03)
[2022-07-10] MEDS ORDERED: MIRALAX17 GM (16:04)
[2022-07-10] MEDS ORDERED: SENNA-TABS8.6 MG PO (16:05)
[2022-07-10 23:45] VITALS: BP 120/71
== END 2022-07-10 23:50 | disposition short-term general hospital (02) ==
LOC: ED 13:52
PROVIDERS: Nurse Practitioner
DX: E84.0 Cystic fibrosis with pulmonary manifestations (principal); J45.909 Unspecified asthma, uncomplicated; Z86.73 Personal history of transient ischemic attack (TIA), and cerebral infarction without residual deficits; Z20.822 Contact with and (suspected) exposure to COVID-19
CPT/HCPCS: J2020

== ENCOUNTER 2022-07-24 15:30 | Emergency (ER) | payer OTHER ==
[2022-07-24] VITALS (11 sets, daily range): BP systolic 83–108; BP diastolic 48–60
[~2022-07-24] VITALS: Ht 175.3 cm; Wt 53.6 kg
[~2022-07-24 15:30] MED LIST changes: +ADVAIR DISK1 INH; +CALCIUM 500/VITAMIN PO; +COLACE100 MG PO; +MIRALAX17 GM; +MULTIVITAMI9 PO; +PREDNISONE20 MG PO; +SENNA-TABS8.6 MG PO; +TESSALON PERLE100 MG; +TOBI300 MG/5 M IN; +VITAMIN A; +[UNRECOGNIZED DRUG - OTHER]
[2022-07-24 16:28] LABS: HEMATOCRIT 34.7 % (39.0-50.0); HEMOGLOBIN 11.2 g/dl (14.0-18.0); IMMATURE GRANULOCYTES 0.2 % (0.0-5.0); MEAN CELL VOLUME 81.5 fL CALC (80.0-100.0); MEAN CORPUSCULAR HGB 26.3 pG CALC (26.0-32.0); MEAN CORPUSCULAR HGB CONC 32.3 g/dL CAL (32.0-36.0); NEUT# 18.74 thou/uL (1.82-7.42); RED BLOOD COUNT 4.26 mill/uL (4.70-6.10); RED CELL DISTRI WIDTH 12.8 % (11.5-15.5)
[2022-07-24 16:43] LABS: ALKALINE PHOSPHATASE 92 u/l (38-126); ANION GAP 12 (6-22 (CALC)); BUN 9 mg/dL (9-20); BUN/CREATININE RATIO 19 (12-20 (CALC)); CARBON DIOXIDE 28 mmol/l (22-30); CHLORIDE 99 mmol/l (95-108); CREATININE 0.5 mg/dL (0.7-1.3); GFR FOR AFR.AMER. > 60 ML/MIN (>=60 (CALC)); GFR OTHER RACES > 60 ML/MIN (>=60 (CALC)); POTASSIUM 3.7 mmol/l (3.5-5.1); SGOT/AST 20 u/l (17-59); SODIUM 135 mmol/l (137-146); TOTAL PROTEIN 7.5 g/dL (6.3-8.2)
[2022-07-24 16:46] LABS: BILIRUBIN, TOTAL 0.8 mg/dL (0.0-1.4)
[2022-07-24] MEDS ORDERED: LEVAQUIN750 M1 PO (20:01)
[2022-07-24] MEDS ORDERED: STERAPRED DS10 MG PO (20:01)
== END 2022-07-24 20:33 | disposition home or self-care (01) ==
LOC: ED 15:30
PROVIDERS: Emergency Medicine
DX: E84.0 Cystic fibrosis with pulmonary manifestations (principal); Z86.73 Personal history of transient ischemic attack (TIA), and cerebral infarction without residual deficits; Z20.822 Contact with and (suspected) exposure to COVID-19
CPT/HCPCS: Q9967

== ENCOUNTER 2022-07-28 14:09 | Emergency (ER) | payer OTHER ==
[~2022-07-28] VITALS: Ht 175.3 cm; Wt 54.0 kg
[~2022-07-28 14:09] MED LIST changes: +STERAPRED DS10 MG PO
[2022-07-28 14:13] VITALS: BP 118/64
[2022-07-28 14:15] VITALS: BP 101/59
[2022-07-28 14:30] VITALS: BP 100/55
[2022-07-28 15:24] LABS: HEMATOCRIT 36.2 % (39.0-50.0); HEMOGLOBIN 11.7 g/dl (14.0-18.0); IMMATURE GRANULOCYTES 0.2 % (0.0-5.0); MEAN CELL VOLUME 81.5 fL CALC (80.0-100.0); MEAN CORPUSCULAR HGB 26.4 pG CALC (26.0-32.0); MEAN CORPUSCULAR HGB CONC 32.3 g/dL CAL (32.0-36.0); NEUT# 20.88 thou/uL (1.82-7.42); RED BLOOD COUNT 4.44 mill/uL (4.70-6.10); RED CELL DISTRI WIDTH 12.6 % (11.5-15.5)
[2022-07-28 15:36] LABS: ALBUMIN 4.2 g/dL (3.2-5.0); ALKALINE PHOSPHATASE 93 u/l (38-126); ANION GAP 14 (6-22 (CALC)); BILIRUBIN, TOTAL 0.8 mg/dL (0.0-1.4); BUN 8 mg/dL (9-20); BUN/CREATININE RATIO 15 (12-20 (CALC)); CARBON DIOXIDE 31 mmol/l (22-30); CHLORIDE 96 mmol/l (95-108); CREATININE 0.6 mg/dL (0.7-1.3); GFR FOR AFR.AMER. > 60 ML/MIN (>=60 (CALC)); GFR OTHER RACES > 60 ML/MIN (>=60 (CALC)); POTASSIUM 3.7 mmol/l (3.5-5.1); SGOT/AST 19 u/l (17-59); SODIUM 136 mmol/l (137-146); TOTAL PROTEIN 8.1 g/dL (6.3-8.2)
[2022-07-28 23:42] VITALS: BP 99/52
[2022-07-28 23:45] VITALS: BP 95/52
[2022-07-29] VITALS (13 sets, daily range): BP systolic 83–103; BP diastolic 36–62
== END 2022-07-29 02:51 | disposition short-term general hospital (02) ==
LOC: ED 14:09
PROVIDERS: Family Medicine
DX: J18.9 Pneumonia, unspecified organism (principal); J96.00 Acute respiratory failure, unspecified whether with hypoxia or hypercapnia; E84.0 Cystic fibrosis with pulmonary manifestations; J45.909 Unspecified asthma, uncomplicated; Z86.73 Personal history of transient ischemic attack (TIA), and cerebral infarction without residual deficits; Z20.822 Contact with and (suspected) exposure to COVID-19

== ENCOUNTER 2022-08-20 19:12 | Emergency (ER) | payer OTHER ==
[2022-08-20] VITALS (9 sets, daily range): BP systolic 91–110; BP diastolic 45–65
[~2022-08-20] VITALS: Ht 175.3 cm; Wt 46.0 kg
[2022-08-20 20:48] LABS: BASO% 0.3 % (0-3); EOS% 0.6 % (0-8); IMMATURE GRANULOCYTES 0.4 % (0.0-5.0); LYMPH% 21.2 % (15-41); MEAN CELL VOLUME 77.5 fL CALC (80.0-100.0); MEAN CORPUSCULAR HGB 25.7 pG CALC (26.0-32.0); MEAN CORPUSCULAR HGB CONC 33.2 g/dL CAL (32.0-36.0); MONO% 11.1 % (2-13); NEUT# 11.87 thou/uL (1.82-7.42); NEUT% 66.4 % (42-76); RED BLOOD COUNT 3.77 mill/uL (4.70-6.10); RED CELL DISTRI WIDTH 13.4 % (11.5-15.5)
[2022-08-20 20:52] LABS: HEMATOCRIT 29.2 % (39.0-50.0); HEMOGLOBIN 9.7 g/dl (14.0-18.0)
[2022-08-20 20:57] LABS: ALBUMIN 3.8 g/dL (3.2-5.0); ALKALINE PHOSPHATASE 87 u/l (38-126); ANION GAP 12 (6-22 (CALC)); BUN 3 mg/dL (9-20); BUN/CREATININE RATIO 8 (12-20 (CALC)); CARBON DIOXIDE 27 mmol/l (22-30); CHLORIDE 98 mmol/l (95-108); CREATININE 0.4 mg/dL (0.7-1.3); GFR FOR AFR.AMER. > 60 ML/MIN (>=60 (CALC)); GFR OTHER RACES > 60 ML/MIN (>=60 (CALC)); POTASSIUM 3.8 mmol/l (3.5-5.1); SGOT/AST 28 u/l (17-59); SODIUM 133 mmol/l (137-146); TOTAL PROTEIN 7.4 g/dL (6.3-8.2)
[2022-08-20 21:00] LABS: BILIRUBIN, TOTAL 0.4 mg/dL (0.0-1.4)
[2022-08-20] MEDS ORDERED: PROMETHAZINE HY25 M1 PO (22:05)
[2022-08-21 01:29] VITALS: BP 96/68
== END 2022-08-20 23:13 | disposition home or self-care (01) ==
LOC: ED 19:12
PROVIDERS: Family Medicine
DX: R10.84 Generalized abdominal pain (principal); R63.4 Abnormal weight loss; E84.0 Cystic fibrosis with pulmonary manifestations; Z86.73 Personal history of transient ischemic attack (TIA), and cerebral infarction without residual deficits
CPT/HCPCS: Q9967

== ENCOUNTER 2022-09-10 12:59 | Emergency (ER) | payer OTHER ==
[~2022-09-10] VITALS: Ht 175.3 cm; Wt 50.0 kg
[2022-09-10] VITALS (18 sets, daily range): BP systolic 92–109; BP diastolic 39–64
[2022-09-10 14:43] LABS: BASO% 0.2 % (0-3); EOS% 0.5 % (0-8); HEMATOCRIT 31.1 % (39.0-50.0); HEMOGLOBIN 9.7 g/dl (14.0-18.0); IMMATURE GRANULOCYTES 0.2 % (0.0-5.0); LYMPH% 12.6 % (15-41); MEAN CELL VOLUME 78.9 fL CALC (80.0-100.0); MEAN CORPUSCULAR HGB 24.6 pG CALC (26.0-32.0); MEAN CORPUSCULAR HGB CONC 31.2 g/dL CAL (32.0-36.0); MONO% 9.6 % (2-13); NEUT# 12.35 thou/uL (1.82-7.42); NEUT% 76.9 % (42-76); RED BLOOD COUNT 3.94 mill/uL (4.70-6.10); RED CELL DISTRI WIDTH 15.6 % (11.5-15.5)
[2022-09-10 15:02] LABS: ALBUMIN 4.2 g/dL (3.2-5.0); ALKALINE PHOSPHATASE 103 u/l (38-126); ANION GAP 13 (6-22 (CALC)); BILIRUBIN, TOTAL 0.3 mg/dL (0.2-1.3); BUN 17 mg/dL (9-20); BUN/CREATININE RATIO 38 (12-20 (CALC)); CARBON DIOXIDE 25 mmol/l (22-30); CHLORIDE 101 mmol/l (95-108); CREATININE 0.5 mg/dL (0.7-1.3); GFR FOR AFR.AMER. > 60 ML/MIN (>=60 (CALC)); GFR OTHER RACES > 60 ML/MIN (>=60 (CALC)); LIPASE 450 u/l (23-300); POTASSIUM 3.9 mmol/l (3.5-5.1); SGOT/AST 28 u/l (17-59); SODIUM 135 mmol/l (137-146); TOTAL PROTEIN 8.6 g/dL (6.3-8.2)
[2022-09-10] MEDS ORDERED: TRAMADOL HYDROC50 M1 PO (17:44)
== END 2022-09-10 18:00 | disposition home or self-care (01) ==
LOC: ED 12:59
PROVIDERS: Emergency Medicine
DX: T85.848A Pain due to other internal prosthetic devices, implants and grafts, initial encounter (principal); E84.9 Cystic fibrosis, unspecified; J45.909 Unspecified asthma, uncomplicated; Z86.73 Personal history of transient ischemic attack (TIA), and cerebral infarction without residual deficits; Y83.3 Surgical operation with formation of external stoma as the cause of abnormal reaction of the patient, or of later complication, without mention of misadventure at the time of the procedure
CPT/HCPCS: Q9967

== ENCOUNTER 2022-09-12 14:23 | Emergency (ER) | payer OTHER ==
[~2022-09-12] VITALS: Ht 175.3 cm; Wt 50.0 kg
[2022-09-12] VITALS (7 sets, daily range): BP systolic 107–119; BP diastolic 58–66
[~2022-09-12 14:23] MED LIST changes: +TRAMADOL HYDROC50 M1 PO
[2022-09-12 15:43] LABS: BASO% 0.2 % (0-3); EOS% 0.7 % (0-8); HEMATOCRIT 32.1 % (39.0-50.0); IMMATURE GRANULOCYTES 0.3 % (0.0-5.0); LYMPH% 13.9 % (15-41); MEAN CELL VOLUME 78.3 fL CALC (80.0-100.0); MEAN CORPUSCULAR HGB 24.4 pG CALC (26.0-32.0); MEAN CORPUSCULAR HGB CONC 31.2 g/dL CAL (32.0-36.0); MONO% 10.9 % (2-13); NEUT# 11.12 thou/uL (1.82-7.42); RED BLOOD COUNT 4.1 mill/uL (4.70-6.10); RED CELL DISTRI WIDTH 15.5 % (11.5-15.5)
[2022-09-12 15:51] LABS: ALBUMIN 4.2 g/dL (3.2-5.0); ALKALINE PHOSPHATASE 80 u/l (38-126); AMYLASE 58 u/l (30-110); ANION GAP 14 (6-22 (CALC)); BILIRUBIN, TOTAL 0.4 mg/dL (0.2-1.3); BUN 12 mg/dL (9-20); BUN/CREATININE RATIO 24 (12-20 (CALC)); CARBON DIOXIDE 25 mmol/l (22-30); CHLORIDE 99 mmol/l (95-108); CREATININE 0.5 mg/dL (0.7-1.3); GFR FOR AFR.AMER. > 60 ML/MIN (>=60 (CALC)); GFR OTHER RACES > 60 ML/MIN (>=60 (CALC)); LIPASE 247 u/l (23-300); SGOT/AST 24 u/l (17-59); SODIUM 133 mmol/l (137-146); TOTAL PROTEIN 8.8 g/dL (6.3-8.2)
[2022-09-12 19:13] LABS: URINE BILIRUBIN - DIPSTICK NEGATIVE (NEGATIVE); URINE BLOOD DIPSTICK NEGATIVE (NEGATIVE); URINE COLOR YELLOW; URINE GLUCOSE - DIPSTICK NEGATIVE (NEGATIVE); URINE KETONE NEGATIVE (NEGATIVE); URINE LEUK ESTERASE NEGATIVE (NEGATIVE); URINE NITRITE - DIPSTICK NEGATIVE (Negative); URINE PROTEIN - DIPSTICK NEGATIVE (NEG-TRACE); URINE UROBILINOGEN - DIPSTICK 0.2 E.U./dL (0.2)
[2022-09-12] MEDS ORDERED: DICYCLOMINE10 MG PO (19:49)
[2022-09-12] MEDS ORDERED: PROTONIX40 M2 PO ×2 (19:49→19:51)
== END 2022-09-12 20:11 | disposition home or self-care (01) ==
LOC: ED 14:23
PROVIDERS: Nurse Practitioner
DX: T85.848A Pain due to other internal prosthetic devices, implants and grafts, initial encounter (principal); E84.9 Cystic fibrosis, unspecified; J45.909 Unspecified asthma, uncomplicated; Y83.3 Surgical operation with formation of external stoma as the cause of abnormal reaction of the patient, or of later complication, without mention of misadventure at the time of the procedure; Z86.73 Personal history of transient ischemic attack (TIA), and cerebral infarction without residual deficits
CPT/HCPCS: Q9967; S0164

== ENCOUNTER 2022-10-15 11:02 | Emergency (ER) | payer OTHER ==
[~2022-10-15] VITALS: Ht 175.3 cm; Wt 52.8 kg
[2022-10-15] VITALS (19 sets, daily range): BP systolic 94–130; BP diastolic 43–69
[~2022-10-15 11:02] MED LIST changes: +DICYCLOMINE10 MG PO
[2022-10-15 12:06] LABS: BASO% 0.3 % (0-3); EOS% 0.9 % (0-8); HEMATOCRIT 37.1 % (39.0-50.0); HEMOGLOBIN 11.3 g/dl (14.0-18.0); IMMATURE GRANULOCYTES 0.3 % (0.0-5.0); LYMPH% 14.1 % (15-41); MEAN CELL VOLUME 76.8 fL CALC (80.0-100.0); MEAN CORPUSCULAR HGB 23.4 pG CALC (26.0-32.0); MEAN CORPUSCULAR HGB CONC 30.5 g/dL CAL (32.0-36.0); MONO% 9.3 % (2-13); NEUT# 11.03 thou/uL (1.82-7.42); NEUT% 75.1 % (42-76); RED BLOOD COUNT 4.83 mill/uL (4.70-6.10); RED CELL DISTRI WIDTH 15.6 % (11.5-15.5)
[2022-10-15 12:35] LABS: ALBUMIN 4.4 g/dL (3.2-5.0); ALKALINE PHOSPHATASE 76 u/l (38-126); ANION GAP 15 (6-22 (CALC)); BILIRUBIN, TOTAL 0.3 mg/dL (0.2-1.3); BUN 7 mg/dL (9-20); BUN/CREATININE RATIO 14 (12-20 (CALC)); CARBON DIOXIDE 24 mmol/l (22-30); CHLORIDE 100 mmol/l (95-108); CREATININE 0.5 mg/dL (0.7-1.3); GFR FOR AFR.AMER. > 60 ML/MIN (>=60 (CALC)); GFR OTHER RACES > 60 ML/MIN (>=60 (CALC)); POTASSIUM 4.2 mmol/l (3.5-5.1); SGOT/AST 21 u/l (17-59); SODIUM 134 mmol/l (137-146); TOTAL PROTEIN 8.3 g/dL (6.3-8.2)
[2022-10-15] MEDS ORDERED: LEVAQUIN750 M1 PO (14:22)
== END 2022-10-15 15:34 | disposition home or self-care (01) ==
LOC: ED 11:02
PROVIDERS: Family Medicine
DX: J06.9 Acute upper respiratory infection, unspecified (principal); J45.909 Unspecified asthma, uncomplicated; Z86.14 Personal history of Methicillin resistant Staphylococcus aureus infection; Z86.73 Personal history of transient ischemic attack (TIA), and cerebral infarction without residual deficits; Z20.822 Contact with and (suspected) exposure to COVID-19
CPT/HCPCS: J2020

== ENCOUNTER → 2022-10-27 | Emergency (ER) | payer OTHER ==
[~2022-10-27] VITALS: Ht 175.3 cm; Wt 54.4 kg
[2022-10-27 18:59] VITALS: BP 110/65
== END | disposition home or self-care (01) ==
LOC: ED 17:15
DX: E84.0 Cystic fibrosis with pulmonary manifestations (principal); J45.909 Unspecified asthma, uncomplicated; Z86.73 Personal history of transient ischemic attack (TIA), and cerebral infarction without residual deficits

== ENCOUNTER 2022-11-20 12:33 | Emergency (ER) | payer OTHER ==
[~2022-11-20] VITALS: Ht 175.3 cm; Wt 68.0 kg
[2022-11-20] VITALS (12 sets, daily range): BP systolic 98–134; BP diastolic 51–74
[2022-11-20 14:40] LABS: BASO% 0.3 % (0-3); EOS% 1.1 % (0-8); HEMATOCRIT 36.4 % (39.0-50.0); HEMOGLOBIN 11.2 g/dl (14.0-18.0); IMMATURE GRANULOCYTES 0.2 % (0.0-5.0); LYMPH% 14.6 % (15-41); MEAN CELL VOLUME 78.3 fL CALC (80.0-100.0); MEAN CORPUSCULAR HGB 24.1 pG CALC (26.0-32.0); MEAN CORPUSCULAR HGB CONC 30.8 g/dL CAL (32.0-36.0); MONO% 15.4 % (2-13); NEUT# 4.41 thou/uL (1.82-7.42); NEUT% 68.4 % (42-76); RED BLOOD COUNT 4.65 mill/uL (4.70-6.10); RED CELL DISTRI WIDTH 17.6 % (11.5-15.5)
[2022-11-20 14:54] LABS: ALBUMIN 4.5 g/dL (3.2-5.0); ALKALINE PHOSPHATASE 84 u/l (38-126); ANION GAP 15 (6-22 (CALC)); BUN 9 mg/dL (9-20); BUN/CREATININE RATIO 22 (12-20 (CALC)); CARBON DIOXIDE 24 mmol/l (22-30); CHLORIDE 102 mmol/l (95-108); CREATININE 0.4 mg/dL (0.7-1.3); GFR FOR AFR.AMER. > 60 ML/MIN (>=60 (CALC)); GFR OTHER RACES > 60 ML/MIN (>=60 (CALC)); POTASSIUM 3.9 mmol/l (3.5-5.1); SGOT/AST 20 u/l (17-59); SODIUM 137 mmol/l (137-146); TOTAL PROTEIN 7.9 g/dL (6.3-8.2)
[2022-11-20 15:02] LABS: BILIRUBIN, TOTAL 1.1 mg/dL (0.2-1.3)
[2022-11-20] MEDS ORDERED: ALLERGY RE50 MCG/ACT (15:48)
[2022-11-20] MEDS ORDERED: ZYRTEC10 MG PO (15:48)
== END 2022-11-20 16:07 | disposition home or self-care (01) ==
LOC: ED 12:33
PROVIDERS: Nurse Practitioner
DX: B34.9 Viral infection, unspecified (principal); E84.9 Cystic fibrosis, unspecified; Z76.82 Awaiting organ transplant status; Z20.822 Contact with and (suspected) exposure to COVID-19

== ENCOUNTER 2022-11-26 14:09 | Emergency (ER) | payer OTHER ==
[~2022-11-26] VITALS: Ht 175.3 cm; Wt 54.0 kg
[2022-11-26] VITALS (21 sets, daily range): BP systolic 88–150; BP diastolic 51–93
[~2022-11-26 14:09] MED LIST changes: +ALLERGY RE50 MCG/ACT; +ZYRTEC10 MG PO
[2022-11-26 15:07] LABS: BASO% 0.3 % (0-3); EOS% 0.3 % (0-8); HEMATOCRIT 32.7 % (39.0-50.0); HEMOGLOBIN 10.1 g/dl (14.0-18.0); IMMATURE GRANULOCYTES 0.8 % (0.0-5.0); LYMPH% 17.6 % (15-41); MEAN CELL VOLUME 76.4 fL CALC (80.0-100.0); MEAN CORPUSCULAR HGB 23.6 pG CALC (26.0-32.0); MEAN CORPUSCULAR HGB CONC 30.9 g/dL CAL (32.0-36.0); MONO% 10.9 % (2-13); NEUT# 8.32 thou/uL (1.82-7.42); NEUT% 70.1 % (42-76); RED BLOOD COUNT 4.28 mill/uL (4.70-6.10); RED CELL DISTRI WIDTH 16.3 % (11.5-15.5)
[2022-11-26 15:20] LABS: ALKALINE PHOSPHATASE 65 u/l (38-126); ANION GAP 12 (6-22 (CALC)); BILIRUBIN, TOTAL 0.4 mg/dL (0.2-1.3); BUN 3 mg/dL (9-20); BUN/CREATININE RATIO 7 (12-20 (CALC)); CARBON DIOXIDE 28 mmol/l (22-30); CHLORIDE 93 mmol/l (95-108); CREATININE 0.5 mg/dL (0.7-1.3); GFR FOR AFR.AMER. > 60 ML/MIN (>=60 (CALC)); GFR OTHER RACES > 60 ML/MIN (>=60 (CALC)); POTASSIUM 3.4 mmol/l (3.5-5.1); SGOT/AST 26 u/l (17-59); SODIUM 130 mmol/l (137-146); TOTAL PROTEIN 7.4 g/dL (6.3-8.2)
[2022-11-27] VITALS: BP 142/82
== END 2022-11-26 18:25 | disposition short-term general hospital (02) ==
LOC: ED 14:09
PROVIDERS: Family Medicine
DX: A41.9 Sepsis, unspecified organism (principal); J18.9 Pneumonia, unspecified organism; E84.0 Cystic fibrosis with pulmonary manifestations; Z20.822 Contact with and (suspected) exposure to COVID-19
CPT/HCPCS: J2020

== ENCOUNTER 2022-12-22 11:57 | Emergency (ER) | payer OTHER ==
[~2022-12-22] VITALS: Ht 175.3 cm; Wt 54.5 kg
[2022-12-22] VITALS (11 sets, daily range): BP systolic 98–117; BP diastolic 50–74
[2022-12-22 12:49] LABS: BASO% 0.3 % (0-3); EOS% 1.1 % (0-8); HEMATOCRIT 37.3 % (39.0-50.0); HEMOGLOBIN 11.3 g/dl (14.0-18.0); IMMATURE GRANULOCYTES 0.3 % (0.0-5.0); LYMPH% 21.5 % (15-41); MEAN CELL VOLUME 77.5 fL CALC (80.0-100.0); MEAN CORPUSCULAR HGB 23.5 pG CALC (26.0-32.0); MEAN CORPUSCULAR HGB CONC 30.3 g/dL CAL (32.0-36.0); MONO% 9.9 % (2-13); NEUT# 6.45 thou/uL (1.82-7.42); NEUT% 66.9 % (42-76); RED BLOOD COUNT 4.81 mill/uL (4.70-6.10)
[2022-12-22 12:59] LABS: ALBUMIN 4.1 g/dL (3.2-5.0); ALKALINE PHOSPHATASE 79 u/l (38-126); BILIRUBIN, TOTAL 0.3 mg/dL (0.2-1.3); BUN 4 mg/dL (9-20); BUN/CREATININE RATIO 7 (12-20 (CALC)); CARBON DIOXIDE 28 mmol/l (22-30); CHLORIDE 100 mmol/l (95-108); CREATININE 0.5 mg/dL (0.7-1.3); GFR FOR AFR.AMER. > 60 ML/MIN (>=60 (CALC)); GFR OTHER RACES > 60 ML/MIN (>=60 (CALC)); POTASSIUM 3.9 mmol/l (3.5-5.1); SGOT/AST 22 u/l (17-59)
[2022-12-22 13:16] LABS: ANION GAP 13 (6-22 (CALC)); SODIUM 137 mmol/l (137-146)
[2022-12-22] MEDS ORDERED: LEVAQUIN750 M1 PO (13:43)
== END 2022-12-22 14:12 | disposition home or self-care (01) ==
LOC: ED 11:57
PROVIDERS: Family Medicine
DX: J06.9 Acute upper respiratory infection, unspecified (principal); E84.0 Cystic fibrosis with pulmonary manifestations; Z20.822 Contact with and (suspected) exposure to COVID-19

== ENCOUNTER 2022-12-25 15:01 | Emergency (ER) | payer OTHER ==
[~2022-12-25] VITALS: Ht 175.3 cm; Wt 54.0 kg
[2022-12-25 17:02] LABS: BASO% 0.2 % (0-3); EOS% 0.3 % (0-8); HEMATOCRIT 38.7 % (39.0-50.0); IMMATURE GRANULOCYTES 0.2 % (0.0-5.0); LYMPH% 12.2 % (15-41); MEAN CELL VOLUME 76.5 fL CALC (80.0-100.0); MEAN CORPUSCULAR HGB 23.7 pG CALC (26.0-32.0); MONO% 6.9 % (2-13); NEUT# 12.99 thou/uL (1.82-7.42); NEUT% 80.2 % (42-76); RED BLOOD COUNT 5.06 mill/uL (4.70-6.10); RED CELL DISTRI WIDTH 15.8 % (11.5-15.5)
[2022-12-25 17:19] LABS: ALBUMIN 4.3 g/dL (3.2-5.0); ALKALINE PHOSPHATASE 92 u/l (38-126); ANION GAP 16 (6-22 (CALC)); BILIRUBIN, TOTAL 0.5 mg/dL (0.2-1.3); BUN 6 mg/dL (9-20); BUN/CREATININE RATIO 12 (12-20 (CALC)); CARBON DIOXIDE 25 mmol/l (22-30); CHLORIDE 99 mmol/l (95-108); CREATININE 0.5 mg/dL (0.7-1.3); GFR FOR AFR.AMER. > 60 ML/MIN (>=60 (CALC)); GFR OTHER RACES > 60 ML/MIN (>=60 (CALC)); LIPASE 598 u/l (23-300); POTASSIUM 4.3 mmol/l (3.5-5.1); SGOT/AST 24 u/l (17-59); SODIUM 135 mmol/l (137-146); TOTAL PROTEIN 8.4 g/dL (6.3-8.2)
[2022-12-25 19:17] LABS: URINE BILIRUBIN - DIPSTICK NEGATIVE (NEGATIVE); URINE BLOOD DIPSTICK NEGATIVE (NEGATIVE); URINE COLOR YELLOW; URINE GLUCOSE - DIPSTICK NEGATIVE (NEGATIVE); URINE KETONE 40 mg/dL (NEGATIVE); URINE LEUK ESTERASE NEGATIVE (NEGATIVE); URINE PROTEIN - DIPSTICK NEGATIVE (NEG-TRACE); URINE SPECIFIC GRAVITY 1.015; URINE UROBILINOGEN - DIPSTICK 0.2 E.U./dL (0.2)
[2022-12-25 19:24] LABS: URINE NITRITE - DIPSTICK NEGATIVE (Negative)
[2022-12-25] MEDS ORDERED: [UNRECOGNIZED DRUG - OTHER] RE (19:55)
[2022-12-25] MEDS ORDERED: MIRALAX17 GM PO (19:55)
[2022-12-25 20:08] VITALS: BP 115/64
== END 2022-12-25 20:23 | disposition home or self-care (01) ==
LOC: ED 15:01
PROVIDERS: Nurse Practitioner
DX: K59.00 Constipation, unspecified (principal); E84.0 Cystic fibrosis with pulmonary manifestations; J45.909 Unspecified asthma, uncomplicated
CPT/HCPCS: Q9967

== ENCOUNTER 2023-01-04 14:58 | Emergency (ER) | payer OTHER ==
[~2023-01-04] VITALS: Ht 175.3 cm; Wt 54.4 kg
[2023-01-04] VITALS (15 sets, daily range): BP systolic 98–118; BP diastolic 54–69
[~2023-01-04 14:58] MED LIST changes: +MIRALAX17 GM PO; +[UNRECOGNIZED DRUG - OTHER] RE
== END 2023-01-04 19:07 | disposition home or self-care (01) ==
LOC: ED 14:58
DX: E84.0 Cystic fibrosis with pulmonary manifestations (principal); R11.10 Vomiting, unspecified

== ENCOUNTER 2023-03-26 19:22 | Emergency (ER) | payer SELFPAY ==
[2023-03-26] VITALS (8 sets, daily range): BP systolic 94–112; BP diastolic 56–65
[~2023-03-26] VITALS: Ht 175.3 cm; Wt 54.0 kg
[2023-03-26 21:41] LABS: BASO% 0.2 % (0-3); EOS% 1.3 % (0-8); HEMATOCRIT 38.4 % (39.0-50.0); HEMOGLOBIN 12.2 g/dl (14.0-18.0); IMMATURE GRANULOCYTES 0.3 % (0.0-5.0); LYMPH% 26.6 % (15-41); MEAN CELL VOLUME 77.3 fL CALC (80.0-100.0); MEAN CORPUSCULAR HGB 24.5 pG CALC (26.0-32.0); MEAN CORPUSCULAR HGB CONC 31.8 g/dL CAL (32.0-36.0); MONO% 17.2 % (2-13); NEUT# 6.73 thou/uL (1.82-7.42); NEUT% 54.4 % (42-76); RED BLOOD COUNT 4.97 mill/uL (4.70-6.10); RED CELL DISTRI WIDTH 16.7 % (11.5-15.5)
[2023-03-26 21:53] LABS: ALBUMIN 4.1 g/dL (3.2-5.0); ALKALINE PHOSPHATASE 87 u/l (38-126); ANION GAP 16 (6-22 (CALC)); BUN 8 mg/dL (9-20); BUN/CREATININE RATIO 14 (12-20 (CALC)); CARBON DIOXIDE 23 mmol/l (22-30); CHLORIDE 99 mmol/l (95-108); CPK 42 u/l (55-170); CREATININE 0.6 mg/dL (0.7-1.3); GFR FOR AFR.AMER. > 60 ML/MIN (>=60 (CALC)); GFR OTHER RACES > 60 ML/MIN (>=60 (CALC)); MAGNESIUM 1.9 mg/dL (1.6-2.3); POTASSIUM 4.6 mmol/l (3.5-5.1); SGOT/AST 30 u/l (17-59); SODIUM 133 mmol/l (137-146); TOTAL PROTEIN 7.9 g/dL (6.3-8.2)
[2023-03-26 21:54] LABS: BILIRUBIN, TOTAL 1.1 mg/dL (0.2-1.3)
[2023-03-26] MEDS ORDERED: ZITHROMAX Z-PA250 MG PO (22:57)
[2023-03-26] MEDS ORDERED: DOXY-CAPS100 MG PO (22:57)
== END 2023-03-26 23:45 | disposition home or self-care (01) | DRG 193 ==
LOC: ED 19:22
PROVIDERS: Internal Medicine
DX: J18.9 Pneumonia, unspecified organism (principal); E84.0 Cystic fibrosis with pulmonary manifestations; J45.909 Unspecified asthma, uncomplicated; Z20.822 Contact with and (suspected) exposure to COVID-19

== ENCOUNTER 2024-01-30 20:38 | Emergency (ER) | payer MEDICARE, MEDICAID ==
[~2024-01-30] VITALS: Ht 175.3 cm; Wt 65.0 kg
[2024-01-30] VITALS (12 sets, daily range): BP systolic 94–119; BP diastolic 45–95
[~2024-01-30 20:38] MED LIST changes: +CLINDAMYCIN HY150 MG PO; +DOXY-CAPS100 MG PO; +ZITHROMAX Z-PA250 MG PO; +ZYRTEC ALLGY10 M1 PO
[2024-01-30] MEDS ORDERED: IPRATROPIUM-Albuterol 0.5MG-2.5MG/3 ML NEB ONE (20:55)
[2024-01-30] MEDS ORDERED: methylPREDNISolone SODIUM SUCC 125 MG/2 ML SDV IV ONE (20:55)
[2024-01-30] MEDS ORDERED: ALBUTEROL SULFATE 2.5 MG VIAL IN ONE (20:55)
[2024-01-30] MEDS ORDERED: SODIUM CHLORIDE 0.9% 1,000 ML IV ONE (20:55)
[2024-01-30 21:27] LABS: BASO% 0.3 % (0-3); EOS% 1.7 % (0-8); HEMATOCRIT 42.3 % (39.0-50.0); HEMOGLOBIN 13.5 g/dl (14.0-18.0); IMMATURE GRANULOCYTES 0.5 % (0.0-5.0); LYMPH% 22.2 % (15-41); MEAN CELL VOLUME 81.8 fL CALC (80.0-100.0); MEAN CORPUSCULAR HGB 26.1 pG CALC (26.0-32.0); MEAN CORPUSCULAR HGB CONC 31.9 g/dL CAL (32.0-36.0); MONO% 10.2 % (2-13); NEUT# 10.05 thou/uL (1.82-7.42); NEUT% 65.1 % (42-76); RED BLOOD COUNT 5.17 mill/uL (4.70-6.10); RED CELL DISTRI WIDTH 13.8 % (11.5-15.5)
[2024-01-30] MEDS ORDERED: Levofloxacin 750 mg Premix 150 ML IV ONE (21:40)
[2024-01-30] MEDS ORDERED: CEFEPIME HYDROCHLORIDE 2 GM in SODIUM CHLORIDE 0.9% 100 ML IV ONE (21:40)
[2024-01-30 21:45] LABS: ALBUMIN 4.1 g/dL (3.2-5.0); BILIRUBIN, TOTAL 0.7 mg/dL (0.2-1.3); CREATININE 0.5 mg/dL (0.7-1.3); POTASSIUM 3.9 mmol/l (3.5-5.1); TOTAL PROTEIN 8.1 g/dL (6.3-8.2)
[2024-01-31] VITALS: BP 100/62
[2024-01-31 00:03] VITALS: BP 100/62
== END 2024-01-31 00:15 | disposition short-term general hospital (02) ==
LOC: ED 20:38
PROVIDERS: Family Medicine
DX: J18.9 Pneumonia, unspecified organism (principal); E84.0 Cystic fibrosis with pulmonary manifestations; Z20.822 Contact with and (suspected) exposure to COVID-19
CPT/HCPCS: J0692

== ENCOUNTER 2024-04-22 22:04 | Observation (INO) | payer MEDICARE, MEDICAID ==
[~2024-04-22] VITALS: Ht 175.3 cm; Wt 51.0 kg
[2024-04-22 22:11] VITALS: BP 127/88
[2024-04-22 22:15] VITALS: BP 131/89
[2024-04-22] MEDS ORDERED: SODIUM CHLORIDE 0.9% 1,000 ML IV STA (22:16)
[2024-04-22] MEDS ORDERED: Pantoprazole Sodium 40 MG VIAL (Protonix) IV STA (22:16)
[2024-04-22] MEDS ORDERED: MORPHINE SULFATE 4 MG/ML VIAL IV STA (22:16)
[2024-04-22] MEDS ORDERED: PROMETHAZINE HCL 25 MG/ML AMP IV ONE (22:20)
[2024-04-22 22:57] LABS: URINE BILIRUBIN - DIPSTICK Negative (NEGATIVE); URINE BLOOD DIPSTICK Negative (NEGATIVE); URINE COLOR Yellow; URINE GLUCOSE - DIPSTICK Negative (NEGATIVE); URINE KETONE Negative (NEGATIVE); URINE LEUK ESTERASE Negative (NEGATIVE); URINE NITRITE - DIPSTICK Negative (Negative); URINE PH 7.5 (4.5-8.0); URINE PROTEIN - DIPSTICK Negative (NEG-TRACE); URINE SPECIFIC GRAVITY >=1.030; URINE UROBILINOGEN - DIPSTICK 0.2 E.U./dL (0.2)
[2024-04-22 22:58] LABS: BASO% 0.3 % (0-3); EOS% 1.3 % (0-8); HEMATOCRIT 46.9 % (39.0-50.0); HEMOGLOBIN 15.2 g/dl (14.0-18.0); IMMATURE GRANULOCYTES 0.1 % (0.0-5.0); LYMPH% 22.1 % (15-41); MEAN CORPUSCULAR HGB 27.5 pG CALC (26.0-32.0); MEAN CORPUSCULAR HGB CONC 32.4 g/dL CAL (32.0-36.0); MONO% 8.3 % (2-13); NEUT# 7.88 thou/uL (1.82-7.42); NEUT% 67.9 % (42-76); RED BLOOD COUNT 5.52 mill/uL (4.70-6.10); RED CELL DISTRI WIDTH 14.5 % (11.5-15.5)
[2024-04-22 23:11] LABS: ALBUMIN 4.9 g/dL (3.2-5.0); BILIRUBIN, TOTAL 0.8 mg/dL (0.2-1.3); CREATININE 0.6 mg/dL (0.7-1.3); POTASSIUM 3.9 mmol/l (3.5-5.1); TOTAL PROTEIN 8.8 g/dL (6.3-8.2)
[2024-04-23] VITALS (8 sets, daily range): BP systolic 94–119; BP diastolic 42–70
[2024-04-23] MEDS ORDERED: PROMETHAZINE HCL 25 MG/ML AMP IV PRN (01:15)
[2024-04-23] MEDS ORDERED: Polyethylene Glycol 3350 17 GM/PKT PO PRN (01:15)
[2024-04-23] MEDS ORDERED: SODIUM CHLORIDE 0.9% 1,000 ML IV PRN (01:15)
[2024-04-23] MEDS ORDERED: ACETAMINOPHEN 325 MG/TAB PO PRN (01:15)
[2024-04-23] MEDS ORDERED: IBUPROFEN 800 MG/TAB PO PRN (01:15)
[2024-04-23] MEDS ORDERED: ONDANSETRON HCl 4 MG/2 ML SDV IV PRN (01:15)
[2024-04-23] MEDS ORDERED: KETOROLAC TROMETHAMINE 30 MG/ML SDV IV PRN (01:15)
[2024-04-23] MEDS ORDERED: ONDANSETRON 4 MG/TAB ODT PO PRN (01:15)
[2024-04-23] MEDS ORDERED: ALUM & MAG HYDROX-SIMETHICONE 30 ML PO PRN (01:15)
[2024-04-23] MEDS ORDERED: FAMOTIDINE 10MG/ML 2ML SDV IV PRN (01:15)
[2024-04-23] MEDS ORDERED: MORPHINE SULFATE 4 MG/ML VIAL IV PRN (01:20)
[2024-04-23] MEDS ORDERED: ENOXAPARIN SODIUM 40 MG/0.4 ML SYR SC SCH (02:05)
[2024-04-23] MEDS ORDERED: Pantoprazole Sodium 40 MG VIAL (Protonix) IV SCH (02:08)
[2024-04-23] MEDS ORDERED: DEXTROSE 5% w/NACL 0.45 1,000 ML IV PRN (07:40)
[2024-04-23] MEDS ORDERED: chlordiazePOXIDE HCL 25 MG CAP PO PRN (10:50)
[2024-04-23] MEDS ORDERED: LORazepam 2 MG/ML IM PRN (10:55)
[2024-04-23] MEDS ORDERED: LORazepam 2 MG/ML IV PRN (10:55)
[2024-04-23] MEDS ORDERED: HYDROmorphone HCL 2 MG/AMP IV PRN (11:15)
[2024-04-23] MEDS ORDERED: MULTIPLE VITAMIN 10 ML,THIAMINE HCL 100 MG in DEXTROSE 5% / 0.9% NACL 1,000 ML IV SCH (12:00)
[2024-04-23] MEDS ORDERED: PIPERACILLIN Sodium-Tazobactam 3.375 GM in SODIUM CHLORIDE 0.9% 100 ML IV SCH (12:00)
[2024-04-24] VITALS (7 sets, daily range): BP systolic 105–114; BP diastolic 50–70
[2024-04-24 05:00] LABS: BASO% 0.3 % (0-3); EOS% 5.2 % (0-8); IMMATURE GRANULOCYTES 0.2 % (0.0-5.0); LYMPH% 39.2 % (15-41); MEAN CELL VOLUME 89.1 fL CALC (80.0-100.0); MEAN CORPUSCULAR HGB 28.1 pG CALC (26.0-32.0); MEAN CORPUSCULAR HGB CONC 31.5 g/dL CAL (32.0-36.0); MONO% 10.4 % (2-13); NEUT# 3.96 thou/uL (1.82-7.42); NEUT% 44.7 % (42-76); RED BLOOD COUNT 3.95 mill/uL (4.70-6.10); RED CELL DISTRI WIDTH 14.3 % (11.5-15.5)
[2024-04-24 05:03] LABS: HEMATOCRIT 35.2 % (39.0-50.0); HEMOGLOBIN 11.1 g/dl (14.0-18.0)
[2024-04-24 05:06] LABS: CREATININE 0.5 mg/dL (0.7-1.3); MAGNESIUM 1.7 mg/dL (1.6-2.3); POTASSIUM 3.7 mmol/l (3.5-5.1)
[2024-04-24 05:07] LABS: ALBUMIN 3.1 g/dL (3.2-5.0); BILIRUBIN, TOTAL 0.4 mg/dL (0.2-1.3); TOTAL PROTEIN 5.9 g/dL (6.3-8.2)
[2024-04-24] MEDS ORDERED: NACL IV ONE (08:22)
[2024-04-24] MEDS ORDERED: DEXTROSE IV ONE (08:22)
[2024-04-25 00:18] VITALS: BP 100/59
[2024-04-25 04:31] VITALS: BP 108/55
[2024-04-25 05:42] LABS: ALBUMIN 3.3 g/dL (3.2-5.0); BILIRUBIN, TOTAL 0.4 mg/dL (0.2-1.3); CREATININE 0.5 mg/dL (0.7-1.3); POTASSIUM 4.1 mmol/l (3.5-5.1); TOTAL PROTEIN 6.2 g/dL (6.3-8.2)
[2024-04-25 08:37] VITALS: BP 132/58
[2024-04-25 12:07] VITALS: BP 101/67
== END 2024-04-25 11:50 | disposition home or self-care (01) ==
LOC: ED 22:04 → ED-I 04-23 00:40 → ED 04-23 01:16 → MS2 04-23 01:17
PROVIDERS: Family Medicine; Nurse Practitioner Family; ADMIT Internal Medicine; ATTEND Internal Medicine
DX: K85.20 Alcohol induced acute pancreatitis without necrosis or infection (principal); E84.0 Cystic fibrosis with pulmonary manifestations; Z20.822 Contact with and (suspected) exposure to COVID-19
CPT/HCPCS: J1650; J2470; Q9967

== ENCOUNTER 2024-06-21 02:30 | Emergency (ER) | payer MEDICARE, MEDICAID ==
[~2024-06-21] VITALS: Ht 175.3 cm; Wt 74.0 kg
[2024-06-21] MEDS ORDERED: IPRATROPIUM-Albuterol 0.5MG-2.5MG/3 ML NEB ONE (02:40)
[2024-06-21] MEDS ORDERED: methylPREDNISolone SODIUM SUCC 125 MG/2 ML SDV IV ONE (02:40)
[2024-06-21 02:48] VITALS: BP 97/59
[2024-06-21 02:54] LABS: BASO% 0.3 % (0-3); EOS% 1.6 % (0-8); HEMOGLOBIN 12.9 g/dl (14.0-18.0); IMMATURE GRANULOCYTES 0.4 % (0.0-5.0); LYMPH% 34.9 % (15-41); MEAN CELL VOLUME 89.2 fL CALC (80.0-100.0); MEAN CORPUSCULAR HGB 27.2 pG CALC (26.0-32.0); MEAN CORPUSCULAR HGB CONC 30.5 g/dL CAL (32.0-36.0); MONO% 10.7 % (2-13); NEUT# 5.37 thou/uL (1.82-7.42); NEUT% 52.1 % (42-76); RED BLOOD COUNT 4.74 mill/uL (4.70-6.10); RED CELL DISTRI WIDTH 13.6 % (11.5-15.5)
[2024-06-21 02:55] LABS: HEMATOCRIT 42.3 % (39.0-50.0)
[2024-06-21 03:00] VITALS: BP 105/67
[2024-06-21 03:07] LABS: BILIRUBIN, TOTAL 0.4 mg/dL (0.2-1.3); CREATININE 0.5 mg/dL (0.7-1.3); POTASSIUM 4.1 mmol/l (3.5-5.1); TOTAL PROTEIN 8.1 g/dL (6.3-8.2)
[2024-06-21 03:30] VITALS: BP 99/55
[2024-06-21] MEDS ORDERED: VIBRAMYCIN100 M2 PO (03:47)
[2024-06-21] MEDS ORDERED: DOXYCYCLINE HYCLATE 100 MG/CAP PO ONE (03:50)
[2024-06-21 04:00] VITALS: BP 99/48
== END 2024-06-21 04:05 | disposition home or self-care (01) ==
LOC: ED 02:30
PROVIDERS: Family Medicine
DX: E84.0 Cystic fibrosis with pulmonary manifestations (principal); J45.909 Unspecified asthma, uncomplicated; Z20.822 Contact with and (suspected) exposure to COVID-19

== ENCOUNTER 2024-08-11 16:53 | Emergency (ER) | payer MEDICARE ==
[~2024-08-11] VITALS: Ht 175.3 cm; Wt 54.4 kg
[2024-08-11] VITALS (10 sets, daily range): BP systolic 104–120; BP diastolic 63–79
[~2024-08-11 16:53] MED LIST changes: +VIBRAMYCIN100 M2 PO
[2024-08-11] MEDS ORDERED: methylPREDNISolone SODIUM SUCC 125 MG/2 ML SDV IV ONE (17:15)
[2024-08-11] MEDS ORDERED: IPRATROPIUM-Albuterol 0.5MG-2.5MG/3 ML NEB ONE (17:15)
[2024-08-11] MEDS ORDERED: SODIUM CHLORIDE 0.9% 1,000 ML IV ONE (17:35)
[2024-08-11] MEDS ORDERED: Levofloxacin 750 mg Premix 150 ML IV ONE (17:35)
[2024-08-11 18:06] LABS: BASO% 0.3 % (0-3); EOS% 0.6 % (0-8); HEMATOCRIT 37.7 % (39.0-50.0); HEMOGLOBIN 12.5 g/dl (14.0-18.0); IMMATURE GRANULOCYTES 0.4 % (0.0-5.0); LYMPH% 17.1 % (15-41); MEAN CELL VOLUME 86.9 fL CALC (80.0-100.0); MEAN CORPUSCULAR HGB 28.8 pG CALC (26.0-32.0); MEAN CORPUSCULAR HGB CONC 33.2 g/dL CAL (32.0-36.0); MONO% 9.6 % (2-13); NEUT# 12.11 thou/uL (1.82-7.42); RED BLOOD COUNT 4.34 mill/uL (4.70-6.10); RED CELL DISTRI WIDTH 14.4 % (11.5-15.5)
[2024-08-11] MEDS ORDERED: DiphenhydrAMINE HCL 50 MG/ML SDV IV ONE (18:15)
[2024-08-11 18:17] LABS: CREATININE 0.5 mg/dL (0.7-1.3); POTASSIUM 4.6 mmol/l (3.5-5.1); TOTAL PROTEIN 7.5 g/dL (6.3-8.2)
[2024-08-11 18:19] LABS: BILIRUBIN, TOTAL 0.9 mg/dL (0.2-1.3)
[2024-08-11] MEDS ORDERED: LEVOFLOXACIN750 MG PO (18:45)
[2024-08-11] MEDS ORDERED: ACETAMINOPHEN 500 MG TAB PO ONE (18:50)
[2024-08-11] MEDS ORDERED: HYCODAN1 ML PO (19:16)
[2024-08-11] MEDS ORDERED: DECADRON4 MG PO (19:16)
== END 2024-08-11 19:44 | disposition home or self-care (01) ==
LOC: ED 16:53
PROVIDERS: Nurse Practitioner
DX: J18.9 Pneumonia, unspecified organism (principal); E84.9 Cystic fibrosis, unspecified; J45.909 Unspecified asthma, uncomplicated; Z20.822 Contact with and (suspected) exposure to COVID-19
CPT/HCPCS: J1200